=== PATIENT | female | born 1935 | race Caucasian/White ===

== ENCOUNTER → 2023-03-13 13:49 | Outpatient (REF) | payer MEDICARE, SELFPAY | LOC: DHCBS HW 13:49 | PROVIDERS: ATTENDING PHYSICIAN Internal Medicine Cardiovascular Disease; FAMILY PHYSICIAN Internal Medicine Geriatric Medicine | DX: I48.0 Paroxysmal atrial fibrillation (principal) | CPT/HCPCS: 93306 ==

== ENCOUNTER 2023-04-10 19:09 | Inpatient (IN) | payer MEDICARE, SELFPAY ==
[2023-04-10] VITALS (7 sets, daily range): BP systolic 102–158; BP diastolic 52–76; BMI 21.9
[2023-04-10 17:12] LABS: % Basophils 0.6 % (0-2); % Eosinophils 1.4 % (0-6); % Immature Granulocytes 0.4 % (0-0.5); % Lymphocytes 12.2 % (20.5-51.1); % Monocytes 6.1 % (1.7-9.3); % Neutrophils 79.3 % (42.2-75.2); Absolute Basophils 0.1 10^3/uL (0-0.2); Absolute Eosinophils 0.2 10^3/uL (0-0.7); Absolute Lymphocytes 1.3 10^3/uL (1.2-3.4); Absolute Monocytes 0.7 10^3/uL (0.1-0.6); Absolute Neutrophils 8.6 10^3/uL (1.4-6.5); Hematocrit 39.1 % (37.0-47.0); Mean Corp Hgb Conc. 33.2 g/dL (33.0-37.0); Mean Corpuscular Hgb 31.1 pg (27.0-31.0); Mean Corpuscular Volume 93.5 fL (81.0-99.0); Mean Platelet Volume 9.9 fL (7.4-10.4); Nucleated Red Blood Cells % 0 %; Platelet Count 324 10^3/uL (130-400); Red Blood Cell Count 4.18 10^6/uL (4.20-5.40); Red Cell Dist. Width 13.4 % (11.5-14.5); White Blood Cell Count 10.8 10^3/uL (4.8-10.8)
--- NOTE | 2023-04-10 17:30 | ED.GENMED ---
History of Present Illness
General
Chief Complaint: Abnormal Lab Value
Source: patient
Exam Limitations: none
Time Seen by Provider: 04/10/23 16:31
Travel History
Have you had any contact with someone who has COVID-19?: No
Do you have any symptoms of coronavirus? Fever > 100 degrees, chills, cough, shortness of breath, sore throat, loss of taste or smell, muscle aches, or headache?: No
History of Present Illness
History of Present Illness:
87-year-old female presents in referral from family doctor for evaluation of elevated potassium. Patient had routine blood work drawn today and states that she was called by her doctor told to come here for evaluation of elevated potassium. She
has hypertension and was started on spironolactone about 2 weeks ago. She states she feels dizzy. She states she is always dizzy since about 2 months ago. This is not new. No chest pain. No shortness of breath. No other complaints at this time
Past History
Past History
ED Past Medical History: HTN, Hypercholesterolemia, Hypothyroidism, Psychiatric and Other (History of corneal erosions, plantar fasciitis, cataracts, arthritis, pneumonia)
ED Past Surgical History: Cholecystectomy, Gynecological (Hysterectomy) and Other (Epidural and facet injections)
Social History
Tobacco: Non-smoker
Alcohol: None
Drug: None
Personal:
Living: with family
Employment: Retired
Family History
Family History: Hypertension
Phy Exam
Physical Exam
Physical Exam:
General: Well-appearing female no acute respiratory distress
HEENT: Normocephalic atraumatic
Heart: Regular rate and rhythm no murmurs
Lungs: Clear to auscultation bilaterally no wheezing
Extremities: No cyanosis or edema
Course
Orders/Labs/Results
Orders:
Orders
04/10/23 15:11
EKG [Electrocardiogram (*1)] Urgent
Reason for Study: Vertigo / Dizzy
04/10/23 15:12
EKG- Treatment ONCE
04/10/23 17:02
Complete Blood Count/With Diff Urgent
Comprehensive Metabolic Panel Urgent
04/10/23 17:37
Calcium Gluconate 1 gram/100mL [Calcium Gluconate] 1 gram in 100 ml IV ONCE
Dextrose 50%-Water [Dextrose 50% Syringe] 25 grams IV NOW STA
Insulin Human Regular [Novolin R] 5 units IV NOW STA
Sodium Zirconium Cyclosilicate [Lokelma] 10 gram PO NOW STA
Abnormal Lab Results
04/10/23
17:02
RBC 4.18 L 10^6/uL
(4.20-5.40)
MCH 31.1 H pg
(27.0-31.0)
Absolute Neuts (auto) 8.6 H 10^3/uL
(1.4-6.5)
Absolute Monos (auto) 0.7 H 10^3/uL
(0.1-0.6)
Neutrophils % 79.3 H %
(42.2-75.2)
Lymphocytes % 12.2 L %
(20.5-51.1)
Potassium 6.9 H* mmol/L
(3.5-5.1)
Chloride 110 H mmol/L
(98-107)
Carbon Dioxide 21 L mmol/L
(22-30)
BUN 76 H mg/dl
(7-17)
Creatinine 1.6 H mg/dL
(0.6-1.0)
Glucose 101 H mg/dl
(70-99)
04/10/23 17:02
04/10/23 17:02
Vital Signs
Initial and Last Documented VS:
Initial Vital Signs
Temp Pulse Resp BP Pulse Ox
98.3 F 76 16 124/57 98
04/10/23 15:08 04/10/23 15:08 04/10/23 15:08 04/10/23 15:08 04/10/23 15:08
Last Documented Vital Signs
Temp Pulse Resp BP Pulse Ox
98.3 F 76 16 124/57 98
04/10/23 15:08 04/10/23 15:08 04/10/23 15:08 04/10/23 15:08 04/10/23 15:08
MDM/Problems Addressed
Differential Diagnosis Includes:
Elevated potassium as an outpatient. Will recheck here today. Value earlier was 6.4. Question possible recent initiation of spironolactone as a source
*Critical Care Note
Total Time (30-74mins, 75-104mins- exclusive of procedures): Not Applicable
Update Note
Update Note:
Recheck potassium today is 6.9. EKG does show peaked T waves. Will initiate treatment for hyperkalemia and admit to hospital
ED Attending Note
-
Portions of this chart may have been created with voice recognition software.� Occasional wrong word or��sound alike� substitutions may have occurred due to the inherent limitations of voice recognition software.
Discharge Plan
Departure
Patient Disposition: Admit
Date of Disposition: 04/10/23
Time of Disposition: 17:46
Admit to: Telemetry
Presentation/result/management discussed w/ accepting MD/DO: Hospitalist
Discharge Problem:
Acute hyperkalemia
Prescriptions:
No Action
levothyroxine [Synthroid] 75 MCG tablet
75 mcg PO DAILY
gabapentin 300 MG capsule
300 mg PO TID
mx-zyc-ON-Ad-Sp-gnawlib-lutein 1 EACH tablet
1 tab PO DAILY
valsartan-hydrochlorothiazide [Diovan HCT] 1 EACH tablet
1 ea PO DAILY
Patient Comments:
320/25 mg
rivaroxaban [Xarelto] 20 MG tablet
20 mg PO QPM Qty: 30 11RF
Acetaminophen
1,000 mg PO BID
Glucosamine Chondroitin Caplet
1 tab PO DAILY
metoprolol tartrate 25 MG tablet
12.5 mg PO BID
valsartan-hydrochlorothiazide 1 EACH tablet
1 ea PO DAILY Qty: 30 0RF
metoprolol succinate 25 MG tablet extended release 24 hr
25 mg PO DAILY Qty: 30 0RF
lidocaine 5 % adhesive patch,medicated
1 patch topical DAILY Qty: 15 0RF
Rx Instructions:
remove after 12 hrs
alprazolam [Xanax] 0.25 mg tablet
0.25 mg PO HS PRN (Reason: anxiety) Qty: 10 0RF
Referrals:
Chip Tirado MD [Family Provider] -
Interventions
Interventions:
*Risk Screen - Suicide Last Done: 04/10/23 15:08
*General Assessment Last Done: 04/10/23 15:08
*Neglect/Abuse Screening Last Done: 04/10/23 15:08
[2023-04-10 17:33] LABS: ALT (SGPT) 15 U/L (0-35); AST (SGOT) 26 U/L (14-36); Albumin 4.2 g/dl (3.5-5.0); Alkaline Phosphatase 90 U/L (38-126); Blood Urea Nitrogen 76 mg/dl (7-17); Calcium 10.1 mg/dl (8.4-10.2); Carbon Dioxide 21 mmol/L (22-30); Chloride 110 mmol/L (98-107); Glucose 101 mg/dl (70-99); Potassium 6.9 mmol/L (3.5-5.1); Sodium 135 mmol/L (135-145); Total Bilirubin 1.1 mg/dl (0.2-1.3); Total Protein 7.3 g/dl (6.3-8.2); eGFR 31.02
[2023-04-10] MEDS: DEXTROSE 50% SYRINGE 25 GRAMS IV ×2 (17:55→22:34)
[2023-04-10] MEDS: LOKELMA 10 GRAM PO ×2 (17:59→23:16)
[2023-04-10] MEDS: CALCIUM GLUCONATE 100 IV (17:59)
[2023-04-10] MEDS: NOVOLIN R 5 UNITS IV (17:59)
--- NOTE | 2023-04-10 18:48 | HPS.HSE ---
Family Physician
-
Family Physician: Chip Tirado
Chief Complaint
-
hyperkalemia
History of Present Illness
87-year-old female with past medical history of vertigo, paroxysmal atrial fibrillation, hypertension, peripheral vascular disease, hypercholesterolemia, hypothyroidism, corneal abrasion, hemorrhoids, IBS, uterine prolapse presenting as referred by
her primary care physician for elevated potassium. Patient had routine blood work drawn today states she was called by doctor and told to come here for elevated potassium. She was started on spironolactone 2 weeks ago for hypertension. Since then
she has been having to urinate more frequently.
Patient states he has been having vertigo described as spinning since February. Vertigo occurs primarily while getting up or with ambulation. She occasionally has some headache. She is scheduled for MRI of the brain this weekend.
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 She denies any diarrhea today. She is complaining of abdominal pain but is unclear if this is due to need to urinate. She denies any urinary burning or pain.
Medical History
Past Medical History
Past Medical History: Reports Other (vertigo, paroxysmal atrial fibrillation, hypertension, peripheral vascular disease, hypercholesterolemia, hypothyroidism, corneal abrasion, hemorrhoids, IBS, uterine prolapse)
Past Surgical History: Reports Other ( Cholecystectomy, Gynecological (Hysterectomy) and Other (Epidural and facet injections))
Social History
Tobacco: Non-smoker
Alcohol: None
Drug: None
Family History
Family History: Not pertinent
Allergies / Home Medications
Allergies reflects when Allergies were last updated in [employer].
Home Medications with original date entered in [employer]
Allergy/Medication List:
Allergies
Allergy/AdvReac Type Severity Reaction Status Date / Time
amlodipine [From Norvasc] Allergy Unknown Verified 04/10/23 15:08
codeine [Codeine] Allergy Vomiting Verified 04/10/23 15:08
diltiazem Allergy Unknown Verified 02/29/24 15:08
lovastatin [From Advicor] Allergy Itching Verified 04/10/23 15:08
meloxicam [From Mobic] Allergy vertigo Verified 04/10/23 15:08
methocarbamol [From Robaxin] Allergy VERTIGO Verified 04/10/23 15:08
nabumetone [Nabumetone] Allergy Hives Verified 04/10/23 15:08
niacin [From Advicor] Allergy Itching Verified 04/10/23 15:08
trevor quinalones Allergy Unknown Uncoded 04/10/23 15:08
robixcon Allergy vertigo Uncoded 04/10/23 15:08
Home Medications
levothyroxine 75 mcg tablet (Synthroid) 75 mcg PO DAILY 04/13/13
olyhrqul-jsx-AW 0.4 mg-calcium 162 mg-iron 18 qx-tnmdtps-vipzfz tablet 1 tab PO DAILY 04/13/13
rivaroxaban 20 mg tablet (Xarelto) 20 mg PO QPM ##30 04/14/13
acetaminophen 500 mg tablet (Tylenol Extra Strength) 1,000 mg PO BID 09/26/16
cholecalciferol (vitamin D3) 25 mcg (1,000 unit) tablet (Vitamin D3) 25 mcg PO DAILY 04/10/23
hydralazine 50 mg tablet 50 mg PO QID 04/10/23
meclizine 25 mg tablet 25 mg PO BID 04/10/23
metoprolol succinate 25 mg tablet,extended release 24 hr 25 mg PO BID 04/10/23
spironolactone 50 mg tablet 50 mg PO BID 04/10/23
tetrahydrozoline 0.05 % eye drops 1 drp BOTH EYES HS 04/10/23
valsartan 320 mg-hydrochlorothiazide 25 mg tablet 1 tab PO DAILY 04/10/23
Review of Systems
-
History Source: Patient
A 12 point ROS was completed and negative except as noted: Yes
Constitutional: Reports No Symptoms
EENT: Reports No Symptoms
Respiratory: Reports No Symptoms
Cardiac: Reports No Symptoms
Abdomen/GI: Reports See HPI
: Reports No Symptoms
Musculoskeletal: Reports No Symptoms
Skin: Reports No Symptoms
Neurological: Reports No Symptoms
Endocrine: Reports No Symptoms
Hematologic/Lymphatic: Reports No Symptoms
Psych: Reports No Symptoms
Physical Exam
Vital Signs
Vital Signs
Temp Pulse Resp BP Pulse Ox
98.3 F 79 21 143/52 98
04/10/23 15:08 04/10/23 18:15 04/10/23 18:15 04/10/23 18:01 04/10/23 18:15
Physical Exam
General: Well Developed, Well Nourished and No Apparent Distress
HEENT: NormoCephalic, Moist mucous membranes and Atraumatic
Respiratory: Clear
Cardiac: S1/S2 and Regular Rhythm; No Murmur or Rub
GI: Soft, Non Tender, Non Distended and Normal Bowel Sounds; No Organomegaly
Rectal: Deferred by Provider
Musculoskeletal: No Clubbing, No Cyanosis and No Edema
Skin: No Rash
Neuro: Nonfocal/grossly intact
Laboratory Results
-
04/10/23 17:02
04/10/23 17:02
Laboratory Results
Total Bilirubin 1.1 mg/dl (0.2-1.3) 04/10/23 17:02
AST 26 U/L (14-36) 04/10/23 17:02
ALT 15 U/L (0-35) 04/10/23 17:02
Alkaline Phosphatase 90 U/L (38-126) 04/10/23 17:02
Data Reviewed
-
Lab Data: Labs Reviewed by me
Old Records: Reviewed
Impression/Plan
-
IMPRESSION:
PLAN:
# Severe hyperkalemia secondary to addition of spironolactone/chronic valsartan use
# Acute kidney injury
-EKG shows normal sinus rhythm, with peaked T waves
-Insulin dextrose given
-Calcium gluconate given
-Lokelma given
-IV fluids
-Hold spironolactone/valsartan/hydrochlorothiazide
-Recheck BMP in 2 hours
# Persistent vertigo unclear etiology
-Check orthostatic vitals
-Scheduled for outpatient MRI brain this week
-Continue meclizine
# Abdominal pain
# History of IBS
-Could be suprapubic pain
-Could be related to IBS
-Check urinalysis
Paroxysmal atrial fibrillation
-Continue Xarelto
Chronic dizziness
-Continue meclizine
Essential hypertension
-Continue hydralazine QID
-Continue metoprolol
-Might have to increase hydralazine to 5 times a day or increase dosage since stopping spironolactone
Peripheral vascular disease
Hypercholesterolemia
Hypothyroidism
-Continue levothyroxine
History of corneal abrasion
History of hemorrhoids
History of uterine prolapse
Full code
DVT prophylaxis�Xarelto
Low potassium diet
[2023-04-10] MEDS: NSS 1000 IV (20:51)
[2023-04-10] MEDS: TOPROL XL 25 MG PO (20:54)
[2023-04-10] MEDS: TYLENOL 1000 MG PO (20:55)
[2023-04-10] MEDS: ANTIVERT 25 MG PO (20:55)
[2023-04-10] MEDS: APRESOLINE 50 MG PO (21:03)
[2023-04-10] MEDS: VISINE EYE DROPS 1 DROP BOTH EYES (21:03)
[2023-04-10 21:34] LABS: Blood Urea Nitrogen 76 mg/dl (7-17); Calcium 10.4 mg/dl (8.4-10.2); Carbon Dioxide 24 mmol/L (22-30); Chloride 106 mmol/L (98-107); Estimated Creatinine Clearance 22 ml/min; Glucose 135 mg/dl (70-99); Potassium 5.9 mmol/L (3.5-5.1); Sodium 137 mmol/L (135-145); eGFR 33.52
[2023-04-10] MEDS: NOVOLIN R 0.0500000000000000028 UNITS IV (22:34)
[2023-04-10 23:18] LABS: Urine Albumin Negative (Neg - Trace); Urine Bilirubin Negative (Negative); Urine Character Clear (Clear); Urine Color Yellow; Urine Glucose 1+ (Negative); Urine Ketone Negative (Negative); Urine Leukocyte 2+ (Negative); Urine Nitrite Negative (Negative); Urine Occult Blood Negative (Negative); Urine Specific Gravity 1.025 (<1.030); Urine Urobilinogen Negative (Neg - 1+)
[2023-04-10 23:32] LABS: Urine Squamous Cell >30 /LPF (Few)
[2023-04-10 23:33] LABS: Urine Bacteria Moderate (Negative); Urine White Cell 16-20 /HPF (0-5)
[2023-04-11] VITALS (9 sets, daily range): BP systolic 130–175; BP diastolic 55–75; PULSE 77–82; O2SAT 98–99; BMI 21.9
[2023-04-11] MEDS: NON-FORMULARY ITEM 0.0160000000000000003 GRAMS BOTH EYES ×2 (00:50→22:55)
[2023-04-11] MEDS: MELATONIN 5 MG PO ×2 (01:11→23:37)
[2023-04-11] MEDS: SYNTHROID 75 MCG PO (06:11)
[2023-04-11 06:56] LABS: % Basophils 0.6 % (0-2); % Eosinophils 2.6 % (0-6); % Immature Granulocytes 0.3 % (0-0.5); % Lymphocytes 18.1 % (20.5-51.1); % Monocytes 7.8 % (1.7-9.3); % Neutrophils 70.6 % (42.2-75.2); Absolute Basophils 0.1 10^3/uL (0-0.2); Absolute Eosinophils 0.2 10^3/uL (0-0.7); Absolute Lymphocytes 1.6 10^3/uL (1.2-3.4); Absolute Monocytes 0.7 10^3/uL (0.1-0.6); Absolute Neutrophils 6.1 10^3/uL (1.4-6.5); Hematocrit 32.6 % (37.0-47.0); Mean Corp Hgb Conc. 33.7 g/dL (33.0-37.0); Mean Corpuscular Hgb 31.3 pg (27.0-31.0); Mean Corpuscular Volume 92.6 fL (81.0-99.0); Mean Platelet Volume 9.7 fL (7.4-10.4); Nucleated Red Blood Cells % 0 %; Platelet Count 259 10^3/uL (130-400); Red Blood Cell Count 3.52 10^6/uL (4.20-5.40); Red Cell Dist. Width 13.2 % (11.5-14.5); White Blood Cell Count 8.7 10^3/uL (4.8-10.8)
[2023-04-11 07:28] LABS: AST (SGOT) 22 U/L (14-36); Albumin 3.1 g/dl (3.5-5.0); Blood Urea Nitrogen 55 mg/dl (7-17); Carbon Dioxide 17 mmol/L (22-30); Estimated Creatinine Clearance 25 ml/min; Glucose 89 mg/dl (70-99); Total Bilirubin 1.3 mg/dl (0.2-1.3); Total Protein 5.6 g/dl (6.3-8.2)
[2023-04-11 07:38] LABS: ALT (SGPT) 12 U/L (0-35); Alkaline Phosphatase 67 U/L (38-126); Calcium 9.6 mg/dl (8.4-10.2); Chloride 110 mmol/L (98-107); Potassium 5.8 mmol/L (3.5-5.1); Sodium 135 mmol/L (135-145)
[2023-04-11] MEDS: NSS 1000 IV (07:55)
[2023-04-11] MEDS: TOPROL XL 25 MG PO ×2 (07:56→19:58)
[2023-04-11] MEDS: APRESOLINE 50 MG PO ×4 (07:56→22:55)
[2023-04-11] MEDS: VITAMIN D3 (cholecalciferol) 25 MCG PO (07:56)
[2023-04-11] MEDS: THERAGRAN 1 TABLET PO (07:56)
[2023-04-11] MEDS: ANTIVERT 25 MG PO ×2 (07:56→19:58)
[2023-04-11] MEDS: TYLENOL 1000 MG PO ×2 (07:57→19:58)
[2023-04-11] MEDS: LOKELMA 10 GRAM PO (09:07)
[2023-04-11] MEDS: SODIUM BICARBONATE 1150 MEQ IV (09:07)
--- NOTE | 2023-04-11 13:45 | W.PN.HOSP.TC ---
Today's Communication/Plan
-
see outlined plan
Assessment / Plan
Assessment / Plan
Assessment:
Severe hyperkalemia secondary to addition of spironolactone/chronic valsartan use
Acute kidney injury
- Hold spironolactone/valsartan/hydrochlorothiazide
- EKG shows normal sinus rhythm, with peaked T waves
- s/p Jorden gluconate, insulin/dextrose and Lokelma; repeat EKG without peaked T waves
- s/p Lokelma again this AM; repeat BMP at 4pm
- low K diet
- continue bicarbonate IVF for NSS induced acidosis
- Hold spironolactone/valsartan/hydrochlorothiazide
Chronic persistent vertigo unclear etiology
Chronic dizziness
- continue home meclizine prn
- outpatient Brain MRI scheduled next week
- PT/OT
Hx of IBS
UTI - start Rocephin, day 1 pending culture
Paroxysmal atrial fibrillation
- continue Xarelto; dosing adjusted by pharmacy
Essential hypertension, multi-drug resistant
- continue hydralazine QID
- continue metoprolol
- Hold spironolactone/valsartan/hydrochlorothiazide
- may need to consider CCB if becomes elevated
- check Renal Artery US
- check pheo workup
Peripheral vascular disease
Hypercholesterolemia
Hypothyroidism
- continue levothyroxine
History of corneal abrasion
History of hemorrhoids
History of uterine prolapse
DVT ppx: Xarelto
Code: Full
Anticipated Discharge: > 48 hours
Subjective/Interval History
-
Date of Service: April 11, 2023
no new complaints
reports chronically experiencing Vertigo which she now takes Meclizine recently started, state it helps
Objective Data
-
Labs:
Laboratory Results
04/11/23 04/11/23
06:28 16:00
WBC 8.7
Hgb 11.0 L
Hct 32.6 L
Plt Count 259 D
Sodium 135 Pending
Potassium 5.8 H Pending
Chloride 110 H Pending
Carbon Dioxide 17 L Pending
BUN 55 H Pending
Creatinine 1.3 H Pending
Glucose 89 Pending
Calcium 9.6 Pending
Total Bilirubin 1.3
AST 22
ALT 12
Alkaline Phosphatase 67
Vital Signs:
Vital Signs
Temp Pulse Resp BP Pulse Ox
97.9 F 75 16 130/57 99
04/11/23 11:00 04/11/23 11:00 04/11/23 11:00 04/11/23 11:00 04/11/23 11:00
I&O
04/10/23 04/11/23 04/12/23
06:59 06:59 06:59
Intake Total 240 / 240
Balance 240 / 240
Physical Exam
-
General: No Apparent Distress
HEENT: Normocephalic and Atraumatic
Respiratory: Negative Wheezes or Rales
Cardiac: Regular Rhythm and S1/S2
GI: Soft and Nontender
Neuro: AO x 3
Hematologic / Lymphatic: No Lymphadenopathy
Psych: Calm
Data Reviewed
-
Total Time Spent with Patient (in minutes): 42
Labs: Labs Reviewed by me
--- NOTE | 2023-04-11 13:48 | CM ---
Reviewed chart, met with patient to obtain information for assessment. Patient stated that she lives alone in an apartment that is [address] and [address] with no steps. Patient described herself as independent with her ADLs, personal care, dressing, bathing
and toileting. She has a walker and a cane that she uses to assist her with her ambulation.
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 She did admit to some chores being difficult and as that is the case, she was provided with a list of homemaker and companions. She stated that she has a
lot of wonderful neighbors who assist her with what she needs and supportive children.
Patient does not drive but her friend can take her to her appointments and assists with the shopping.
Patent has had VN through in the past.
She has never been to a SNF.
Patient has a prescription plan and uses [facility] in [place] for all of her medications.
Her PCP is Dr. Dimitry Tirado.
Patient stated that physically she feels that she is at baseline, maybe a little weaker due to the vertigo. She stated that she would like [facility]N when she is discharged and selected [facility]. Will make referral.
Plan: Case management will continue to follow and assist with discharge planning. Patient would like to return home with VN services.
[2023-04-11] MEDS: STERILE WATER FOR INJECTION 10 ML IV (14:27)
[2023-04-11] MEDS: ROCEPHIN 1000 MG IV (14:27)
--- NOTE | 2023-04-11 15:58 | CM ---
Consult received for [facility]N (patient selects ). Updated liason.
Plan: Case management will continue to follow and assist with discharge planning. Home with VN through .
--- NOTE | 2023-04-11 15:59 | VNURNOTE ---
Home Health Liaison met with patient at 1520 to discuss [facility] nurse/therapy, visits, schedule and homebound status. Patient is agreeable and understands that visits at home will be 2-3 x per week to assess and teach medical management.
[facility] brochure provided with contact information. Patient is aware that [facility] will contact her for start of care in 1-2 days after discharge from .
[facility] referral completed in [facility].
[2023-04-11 16:30] LABS: Blood Urea Nitrogen 51 mg/dl (7-17); Calcium 9.6 mg/dl (8.4-10.2); Carbon Dioxide 24 mmol/L (22-30); Chloride 105 mmol/L (98-107); Estimated Creatinine Clearance 30 ml/min; Glucose 124 mg/dl (70-99); Potassium 4.9 mmol/L (3.5-5.1); Sodium 137 mmol/L (135-145); eGFR 48.63
[2023-04-11] MEDS: XARELTO 15 MG PO (17:58)
[2023-04-11] MEDS: VISINE EYE DROPS 1 DROP BOTH EYES (22:55)
[2023-04-12 03:34] VITALS: BP 131/55
[2023-04-12] MEDS: SYNTHROID 75 MCG PO (06:09)
[2023-04-12 07:36] LABS: Hematocrit 36.3 % (37.0-47.0); Hemoglobin 12.2 g/dL (12.0-16.0); Mean Corp Hgb Conc. 33.6 g/dL (33.0-37.0); Mean Corpuscular Hgb 31.4 pg (27.0-31.0); Mean Corpuscular Volume 93.6 fL (81.0-99.0); Mean Platelet Volume 9.9 fL (7.4-10.4); Platelet Count 260 10^3/uL (130-400); Red Blood Cell Count 3.88 10^6/uL (4.20-5.40); Red Cell Dist. Width 13.2 % (11.5-14.5); White Blood Cell Count 10.4 10^3/uL (4.8-10.8)
[2023-04-12 07:51] VITALS: BP 136/61
[2023-04-12 08:02] LABS: Blood Urea Nitrogen 45 mg/dl (7-17); Calcium 9.5 mg/dl (8.4-10.2); Carbon Dioxide 30 mmol/L (22-30); Chloride 101 mmol/L (98-107); Estimated Creatinine Clearance 33 ml/min; Glucose 102 mg/dl (70-99); Potassium 4.4 mmol/L (3.5-5.1); Sodium 137 mmol/L (135-145); eGFR 54.53
[2023-04-12] MEDS: ANTIVERT 25 MG PO (09:07)
[2023-04-12] MEDS: TYLENOL 1000 MG PO (09:07)
[2023-04-12] MEDS: THERAGRAN 1 TABLET PO (09:07)
[2023-04-12] MEDS: VITAMIN D3 (cholecalciferol) 25 MCG PO (09:07)
[2023-04-12] MEDS: APRESOLINE 50 MG PO ×2 (09:07→12:49)
[2023-04-12] MEDS: TOPROL XL 25 MG PO (09:07)
--- NOTE | 2023-04-12 11:15 | W.PN.HOSP.TC ---
Today's Communication/Plan
-
dc home VN
Assessment / Plan
Assessment / Plan
Assessment:
Severe hyperkalemia secondary to addition of spironolactone/chronic valsartan use
Acute kidney injury
- stop spironolactone/valsartan
- EKG shows normal sinus rhythm, with peaked T waves
- s/p Jorden gluconate, insulin/dextrose and Lokelma; repeat EKG without peaked T waves
- hyperkalemia now resolved
- low K diet
Chronic persistent vertigo unclear etiology
Chronic dizziness
- continue home meclizine prn
- outpatient Brain MRI scheduled next week
- PT/OT with vestibular therapy
Hx of IBS
UTI
- s/p 2 dose of Rocephin, dc on 3 days cefdinir at discharge
Paroxysmal atrial fibrillation
- continue Xarelto; dosing adjusted by pharmacy
Essential hypertension, multi-drug resistant
- continue hydralazine QID
- continue metoprolol
- stop spironolactone/valsartan
- hydrochlorothiazide 25mg to resume
- may need to consider CCB if becomes elevated; OP F/u
- Renal Artery US outpatient
- pheo workup was sent
Peripheral vascular disease
Hypercholesterolemia
Hypothyroidism
- continue levothyroxine
History of corneal abrasion
History of hemorrhoids
History of uterine prolapse
DVT ppx: Xarelto
Code: Full
More than 30 minutes spent in discharge including
Final examination of the patient
Summarizing hospital stay
Instructions for continuing care to all relevant caregivers
Preparation of discharge records, prescriptions, and referral forms
Total time spent (in minutes): 41
Anticipated Discharge: Today
Subjective/Interval History
-
Date of Service: April 12, 2023
feels well, no complaints, BPs stable for the most part, asymptomatic
Objective Data
-
Labs:
Laboratory Results
04/12/23
07:23
WBC 10.4
Hgb 12.2
Hct 36.3 L
Plt Count 260
Sodium 137
Potassium 4.4
Chloride 101
Carbon Dioxide 30
BUN 45 H
Creatinine 1.0
Glucose 102 H
Calcium 9.5
Vital Signs:
Vital Signs
Temp Pulse Resp BP Pulse Ox
97.6 F 71 17 136/61 95
04/12/23 07:51 04/12/23 07:51 04/12/23 07:51 04/12/23 07:51 04/12/23 07:51
I&O
04/11/23 04/12/23 04/13/23
06:59 06:59 06:59
Intake Total 240 / 240 1480 / 1480
Output Total 300 / 300
Balance 240 / 240 1180 / 1180
Physical Exam
-
General: No Apparent Distress
HEENT: Normocephalic and Atraumatic
Respiratory: Negative Wheezes or Rales
Cardiac: Regular Rhythm and S1/S2
GI: Soft and Nontender
Genito-urinary: No Costovertebral Tender
Musculoskeletal: No Edema
Neuro: AO x 3
Psych: Calm
Data Reviewed
-
Total Time Spent with Patient (in minutes): 41
Labs: Labs Reviewed by me
--- NOTE | 2023-04-12 11:24 | W.DS.TRANS ---
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
-
Discharge Instructions:
Sleep Apnea Risk Low
Discharge Diagnosis/Procedures hyperkalemia induced by BP Meds (Valsartan and
Spironolactone)
Diet 2 Gram Sodium
Additional Diets now that potassium has normalized, can stop
limiting K rich foods
Activity As tolerated
Bathing Restrictions None
Other Services VN
Instructions:
Stand-Alone Forms:
Changes to Home Medications: Yes
Discharge Medications:
DC Medications w/original date entered in [facility]
levothyroxine 75 mcg tablet (Synthroid) 75 mcg PO DAILY AT 0700 Thyroid 04/13/13
jkgsyiuc-mbw-VK 0.4 mg-calcium 162 mg-iron 18 lp-pmwlqtu-bkpbrs tablet 1 tab PO DAILY Supplement 04/13/13
acetaminophen 500 mg tablet (Tylenol Extra Strength) 1,000 mg PO BID pain 09/26/16
cholecalciferol (vitamin D3) 25 mcg (1,000 unit) tablet (Vitamin D3) 25 mcg PO DAILY Supplement 04/10/23
hydralazine 50 mg tablet 50 mg PO QID Blood Pressure 04/10/23
meclizine 25 mg tablet 25 mg PO BID vertigo/dizziness 04/10/23
metoprolol succinate 25 mg tablet,extended release 24 hr 25 mg PO BID Blood Pressure 04/10/23
tetrahydrozoline 0.05 % eye drops 1 drp BOTH EYES HS Eye Condition 04/10/23
ztvrgjk-jxmhkr-xbnrvd oil 0.12 mg-87 mg-788 mg/g topical gel 0.016 g topical HS Skin Issues 04/10/23
cefdinir 300 mg capsule 300 mg PO BID #6 caps 04/12/23
hydrochlorothiazide 25 mg tablet 25 mg PO DAILY #30 tabs 04/12/23
rivaroxaban 15 mg tablet (Xarelto) 15 mg PO QPM #30 tabs 04/12/23
Home Medication Changes
Spironolactone, Valsartan stopped but HCTZ kept
Pending Results: No
Total time spent discharging patient (in min): 41
--- NOTE | 2023-04-12 12:14 | CM ---
Chart reviewed. Spoke with pt at beside
For d/c today
Has ride home
Discussed IMM
Plan - home with VN
[2023-04-12] MEDS: ROCEPHIN 1000 MG IV (12:49)
[2023-04-12] MEDS: STERILE WATER FOR INJECTION 10 ML IV (12:50)
== END 2023-04-12 14:40 | disposition home health service (06) | DRG 683 ==
LOC: 3 WEST ACU 19:09
PROVIDERS: Physician Assistant; ADMITTING PHYSICIAN Hospitalist; ATTENDING PHYSICIAN Internal Medicine; EMERGENCY PHYSICIAN Student in an Organized Health Care Education/Training Program; FAMILY PHYSICIAN Internal Medicine Geriatric Medicine
DX: N17.9 Acute kidney failure, unspecified (principal); N39.0 Urinary tract infection, site not specified; Z16.24 Resistance to multiple antibiotics; E87.5 Hyperkalemia; I10 Essential (primary) hypertension; E03.9 Hypothyroidism, unspecified; E78.00 Pure hypercholesterolemia, unspecified; H26.9 Unspecified cataract; M19.90 Unspecified osteoarthritis, unspecified site; M72.2 Plantar fascial fibromatosis; K58.9 Irritable bowel syndrome, unspecified; I48.0 Paroxysmal atrial fibrillation; R42 Dizziness and giddiness; I73.9 Peripheral vascular disease, unspecified; K64.9 Unspecified hemorrhoids; T46.5X5A Adverse effect of other antihypertensive drugs, initial encounter; T50.0X5A Adverse effect of mineralocorticoids and their antagonists, initial encounter; Y92.9 Unspecified place or not applicable; Z87.01 Personal history of pneumonia (recurrent); Z79.890 Hormone replacement therapy; Z88.5 Allergy status to narcotic agent; Z88.8 Allergy status to other drugs, medicaments and biological substances; Z79.01 Long term (current) use of anticoagulants
CPT/HCPCS: 36415; 80048; 80053; 80061; 81003; 81015; 82088; 82384; 83835; 84100; 84244; 85025; 85027; 87077; 87086; 93005; 96374; 96375; 97162; 97166; 99285

== ENCOUNTER → 2023-05-02 19:36 | Outpatient (REF) | payer MEDICARE, SELFPAY | LOC: MRI 3T 19:36 | PROVIDERS: ATTENDING PHYSICIAN Physician Assistant Surgical; FAMILY PHYSICIAN Internal Medicine Geriatric Medicine | DX: M25.512 Pain in left shoulder (principal) | CPT/HCPCS: 73221 ==

== ENCOUNTER 2023-06-10 06:15 | Day surgery (SDC) | payer MEDICARE, SELFPAY ==
[2023-06-10] VITALS (12 sets, daily range): BP systolic 117–162; BP diastolic 7–73; BMI 23.3
[2023-06-10] MEDS: NORMOSOL-R 1000 IV (07:49)
[2023-06-10] MEDS: TYLENOL 1000 MG PO (07:49)
--- NOTE | 2023-06-10 11:28 | SUR.PHASEI ---
02 sats borderline, pulmonary hygiene q5. E Agus mendoza RN BSN.
== END 2023-06-10 13:15 | disposition home or self-care (01) ==
LOC: SDS 06:15
PROVIDERS: ATTENDING PHYSICIAN Specialist
DX: M75.102 Unspecified rotator cuff tear or rupture of left shoulder, not specified as traumatic (principal); M19.012 Primary osteoarthritis, left shoulder; M75.42 Impingement syndrome of left shoulder
CPT/HCPCS: 29827; 29826; C1713

== ENCOUNTER → 2023-06-20 10:19 | Outpatient (REF) | payer MEDICARE, SELFPAY | LOC: RAD 10:19 | PROVIDERS: ATTENDING PHYSICIAN Internal Medicine Geriatric Medicine | DX: R60.0 Localized edema (principal) | CPT/HCPCS: 93970 ==

== ENCOUNTER 2023-07-10 23:07 | Emergency (ER) | payer MEDICARE, SELFPAY ==
[2023-07-10 23:25] VITALS: BP 192/80
--- NOTE | 2023-07-11 00:17 | ED.GENMED ---
History of Present Illness
<JADON Bradley - Last Filed: 07/11/23 05:22>
General
Chief Complaint: Bowel Problem
Source: patient
Exam Limitations: none
Time Seen by Provider: 07/10/23 23:53
Travel History
Have you had any contact with someone who has COVID-19?: No
Do you have any symptoms of coronavirus? Fever > 100 degrees, chills, cough, shortness of breath, sore throat, loss of taste or smell, muscle aches, or headache?: No
History of Present Illness
History of Present Illness:
87 year old female with hx of afib, HTN, hypothyroidism, s/p L rotator cuff repeair 06/10/23 who presents with severe lower abdominal pain that began just prior to arrival. Pt had recent shoulder surgery. She had a sling on the L arm. She took it
off 3 days ago and had severe shoulder pain. She took a dose of Tramadol that day. Prior to that, last dose of Tramadol was 30 days ago. Last BM was 4 days ago. Today she developed 10/10 sharp lower abdominal pain. Pain comes and goes; has not taken
anything for the pain. States it feels like she has to defecate but cannot. She has associated nausea and abdominal bloating. She has not passed any gas. Denies vomiting or fevers/chills. States she took Miralax yesterday and 2 doses today. She also
took stool softeners x3 today. She took dulcolax liquid as well. This evening she took a suppository and 30 minutes later developed the abdominal pain. States she has been drinking a lot of water and prune juice. Pt has a hx of fecal impaction and
states her pain today feels similar. States she felt her stool with her hand and states it was 'rock hard'. Denies any urinary symptoms, chest pain, SOB. Pt is on Xarelto, last dose was last night.
Past History
<JADON Bradley - Last Filed: 07/11/23 05:22>
Past History
ED Past Medical History: HTN, Hypercholesterolemia, Hypothyroidism, Psychiatric and Other (History of corneal erosions, plantar fasciitis, cataracts, arthritis, pneumonia)
ED Past Surgical History: Cholecystectomy, Gynecological (Hysterectomy) and Other (Epidural and facet injections)
Social History
Tobacco: Non-smoker
Alcohol: None
Drug: None
Personal:
Living: with family
Employment: Retired
Family History
Family History: Hypertension
Review of Systems
<Yolanda Bullard [facility] - Last Filed: 07/11/23 05:22>
Review of Systems
Allergies reviewed?: Yes
All Other Systems: ROS reviewed and negative except as documented in HPI and ROS
Constitutional: Reports no symptoms
EENT: Reports no symptoms
Respiratory: Reports no symptoms
Cardiac: Reports no symptoms
ABD/GI: Reports abdominal pain, nausea, constipated and other (abdominal bloating)
: Reports no symptoms
Musculoskeletal: Reports joint pain (L shoulder pain)
Skin: Reports no symptoms
Neurological: Reports no symptoms
Endocrine: Reports no symptoms
Hematologic/Lymphatic: Reports no symptoms
Psychiatric: Reports no symptoms
Phy Exam
<Yolanda Bullard [facility] - Last Filed: 07/11/23 05:22>
General Physical Exam
General Presentation: moderate distress
General age: appears stated age
General Skin: warm and dry
General Habitus: normal
General Mental: alert
General Hydration: dry mucous membranes
Cardiovascular Exam
Cardiovascular Exam: regular rate/rhythm, no edema, no gallop and no murmur
Pulmonary Exam
Pulmonary Exam: lungs clear, no respiratory distress, no rales, no crackles, no rhonchi, no wheezing and no cough
Gastrointestinal Exam
Gastrointestinal Exam: no pulsatile mass, distended and guarding
Palpation: left lower quadrant: Minimal tenderness and right lower quadrant: Minimal tenderness
Neurological Exam
Neurological Exam: alert and oriented x3
Musculoskeletal Exam
Musculoskeletal Exam: other (sling to L arm)
Skin Exam
Skin Exam: normal color and warm/dry
Course
<JADON Bradley - Last Filed: 07/11/23 05:22>
Orders/Labs/Results
Orders:
Orders
07/11/23 00:38
CR Abdomen - 1 View Urgent
Comment:
Reason For Exam: abd pain
07/11/23 01:56
Enema- Treatment ONCE
Type: Milk of Molasses
07/11/23 04:10
Complete Blood Count/With Diff Urgent
Comprehensive Metabolic Panel Urgent
Lipase Urgent
07/11/23 04:14
Phosphate Enema [Fleet Phosphate Enema-Adult] 135 ml .ROUTE .STK-MED ONE
07/11/23 06:30
Magnesium Citrate [Citroma] 300 ml PO ONCE ONE
Abnormal Lab Results
07/11/23
04:10
WBC 18.3 H 10^3/uL
(4.8-10.8)
Plt Count 402 H 10^3/uL
(130-400)
Abs Immat Gran (auto) 0.1 H 10^3/uL
(0-0.05)
Absolute Neuts (auto) 16.2 H 10^3/uL
(1.4-6.5)
Absolute Lymphs (auto) 1.0 L 10^3/uL
(1.2-3.4)
Absolute Monos (auto) 0.9 H 10^3/uL
(0.1-0.6)
Immature Gran % 0.7 H %
(0-0.5)
Neutrophils % 88.5 H %
(42.2-75.2)
Lymphocytes % 5.5 L %
(20.5-51.1)
Chloride 94 L mmol/L
(98-107)
Carbon Dioxide 33 H mmol/L
(22-30)
BUN 27 H mg/dl
(7-17)
Glucose 135 H mg/dl
(70-99)
Calcium 10.6 H mg/dl
(8.4-10.2)
07/11/23 04:10
07/11/23 04:10
Vital Signs
Initial and Last Documented VS:
Initial Vital Signs
Temp Pulse Resp BP Pulse Ox
98.9 F 78 18 192/80 97
07/10/23 23:25 07/10/23 23:25 07/10/23 23:25 07/10/23 23:25 07/10/23 23:25
Last Documented Vital Signs
Temp Pulse Resp BP Pulse Ox
98.9 F 78 18 192/80 97
07/10/23 23:25 07/10/23 23:25 07/10/23 23:25 07/10/23 23:25 07/10/23 23:25
<Jayce Riley, DO - Last Filed: 07/11/23 06:38>
Orders/Labs/Results
Orders:
Orders
07/11/23 00:38
CR Abdomen - 1 View Urgent
Comment:
Reason For Exam: abd pain
07/11/23 01:56
Enema- Treatment ONCE
Type: Milk of Molasses
07/11/23 04:10
Complete Blood Count/With Diff Urgent
Comprehensive Metabolic Panel Urgent
Lipase Urgent
07/11/23 04:14
Phosphate Enema [Fleet Phosphate Enema-Adult] 135 ml .ROUTE .STK-MED ONE
07/11/23 06:30
Magnesium Citrate [Citroma] 300 ml PO ONCE ONE
Abnormal Lab Results
07/11/23
04:10
WBC 18.3 H 10^3/uL
(4.8-10.8)
Plt Count 402 H 10^3/uL
(130-400)
Abs Immat Gran (auto) 0.1 H 10^3/uL
(0-0.05)
Absolute Neuts (auto) 16.2 H 10^3/uL
(1.4-6.5)
Absolute Lymphs (auto) 1.0 L 10^3/uL
(1.2-3.4)
Absolute Monos (auto) 0.9 H 10^3/uL
(0.1-0.6)
Immature Gran % 0.7 H %
(0-0.5)
Neutrophils % 88.5 H %
(42.2-75.2)
Lymphocytes % 5.5 L %
(20.5-51.1)
Chloride 94 L mmol/L
(98-107)
Carbon Dioxide 33 H mmol/L
(22-30)
BUN 27 H mg/dl
(7-17)
Glucose 135 H mg/dl
(70-99)
Calcium 10.6 H mg/dl
(8.4-10.2)
07/11/23 04:10
07/11/23 04:10
Vital Signs
Initial and Last Documented VS:
Initial Vital Signs
Temp Pulse Resp BP Pulse Ox
98.9 F 78 18 192/80 97
07/10/23 23:25 07/10/23 23:25 07/10/23 23:25 07/10/23 23:25 07/10/23 23:25
Last Documented Vital Signs
Temp Pulse Resp BP Pulse Ox
98.9 F 78 18 192/80 97
07/10/23 23:25 07/10/23 23:25 07/10/23 23:25 07/10/23 23:25 07/10/23 23:25
<JADON Bradley - Last Filed: 07/11/23 05:22>
MDM/Problems Addressed
Differential Diagnosis Includes:
constipation, SBO, colitis
MDM/Problems Addressed:
87 year old female who presents with severe abdominal pain and constipation.
Chronic conditions affecting care: Arrhythmia (afib) and Other (HLD, hypothyroidism)
<JADON Bradley - Last Filed: 07/11/23 05:22>
*Critical Care Note
Total Time (30-74mins, 75-104mins- exclusive of procedures): Not Applicable
<JADON Bradley - Last Filed: 07/11/23 05:22>
Update Note
Update Note:
07/11/2023 0448 AM: Patient has an enema and is holding it in.
07/11/2023 0520 AM: Patient sitting on comode. States abdominal pain has improved, but has not had much output.
<Jayce Riley DO - Last Filed: 07/11/23 06:38>
Update Note
Update Note:
07/11/2023 0448 AM: Patient has an enema and is holding it in.
ED Attending Note
<JADON Bradley - Last Filed: 07/11/23 05:22>
-
Portions of this chart may have been created with voice recognition software.� Occasional wrong word or��sound alike� substitutions may have occurred due to the inherent limitations of voice recognition software.
<Jayce Riley DO - Last Filed: 07/11/23 06:38>
ED Attending Note
Patient seen and examined by attending physician: Yes
I performed the substantive portion of visit, reviewed & personally made and approve the management plan that is documented in note by myself or TRENT.: Yes
ED Attending Note:
Pleasant 87-year-old female who presents with abdominal pain that began just prior to arrival. Patient had recent shoulder surgery and has been on tramadol. She states that she has not had a bowel movement in 4 to 5 days. Tonight she developed
sharp lower abdominal pain. She rated at 10 out of 10. She did start to take MiraLAX, docusate, 36 ounces of prune juice, water, and a glycerin suppository. Patient was seen in conjunction with the PA student. I have reviewed and agree with the
history and treatment plan presented. On my independent physical exam, patient is awake, alert, and oriented x3, moderate acute distress. Abdomen is soft with tenderness to palpation especially in the lower abdomen. Heart is regular rate rhythm.
Lungs are clear to auscultation bilaterally without wheezes rales or rhonchi. Moves all 4 extremities.
Abdominal chest x-ray shows heavy stool burden.
Plan is enema.
Patient had several bowel movements after enema. Resting comfortably. She states that she has no more abdominal pain. She does not feel completely empty but the pain is no longer present
07/11/2023 0631 AM: Patient's son is at the bedside. I had offered patient a disimpaction. She could not decide if she wanted one or not. We discussed the pros and cons of disimpaction. As an alternative I offered her magnesium citrate. I have
every expectation that the magnesium citrate will work since she has had bowel movements several times throughout the night after the enema. She asked me if I could guarantee that she would not return to constipation. I told her I could not. She
again was unsure of the magnesium citrate. I again offered her at least a digital rectal exam. She has multiple hernias and was concerned that it would hurt her hernias. She declined the digital rectal exam. Since she is now moving her bowels
she will take Colace. I will give her a bottle of magnesium citrate and she will take half the bottle. If she does not have a bowel movement after 6 hours she will take the other half bottle. If she still has trouble moving her bowels, she will
return to the emergency department. Both patient and son are okay with this plan. Patient wants no further intervention in the ER at this time.
Patient being discharged in much improved condition.
Discharge Plan
Departure
Patient Disposition: Home (Routine Discharge)
Date of Disposition: 07/11/23
Time of Disposition: 06:35
Patient with high blood pressure during this ER visit?: Yes
Condition: Good
Discharge Problem:
Acute constipation, Abdominal pain
Instructions: Clear Liquid Diet, Constipation, Adult (DC), Abdominal Pain, BLOOD PRESSURE
Prescriptions:
No Action
levothyroxine [Synthroid] 75 MCG tablet
75 mcg PO DAILY AT 0700
acetaminophen [Tylenol Extra Strength] 500 mg Tablet
1,000 mg PO BID
hydralazine 50 mg Tablet
100 mg PO TID
cholecalciferol (vitamin D3) [Vitamin D3] 25 mcg (1,000 unit) Tablet
25 mcg PO DAILY
metoprolol succinate 25 MG tablet extended release 24 hr
25 mg PO BID
hydrochlorothiazide 50 mg Tablet
50 mg PO DAILY
Systane Ultra (PF) 0.4-0.3 % Dropperette
1 drp BOTH EYES TID
Centrum 0.4-162-18 mg Tablet
1 tab PO DAILY
Optase 0.12-87-788 mg/g Gel
1 g topical HS
Rx Instructions:
both eyes
Xarelto 20 mg tablet
20 mg PO QPM
loperamide [Imodium] 2 mg Capsule
2 mg PO PRN PRN (Reason: Diarrhea)
Referrals:
Chip Tirado MD [Family Provider] -
Activity Restrictions/Additional Instructions:
Please take half the bottle of the magnesium citrate when you get home. Wait 6 hours. If you have not had a bowel movement at the end of that time, take the other half bottle. If you still have not had a bowel movement, return to the emergency
department, as discussed.
It was a pleasure meeting you and taking part in your care. We hope for your continued healing and wellness.
Please read discharge instructions in their entirety. However, they are for general education and may not describe your exact diagnosis at discharge. Information on your ER visit and medical conditions were discussed with you along with appropriate
follow up information...
If indicated, please take your medications as instructed and indicated on discharge paperwork.
Please schedule a follow up appointment as directed. Call to schedule an appointment
Please return to the emergency department with ANY change in, persisting, or worsening of symptoms. If any of your symptoms do not improve, or persist, or become more severe within 6-12 hours, please return to the emergency department for further
care.
Please return to the emergency department if you develop a headache, neck pain/stiffness, fever greater than 100.4F, chest pain, shortness of breath, persistent nausea, vomiting, slurred speech, difficulty walking, numbness/tingling, weakness, signs
of infection or any other symptoms that are worrisome to you.
If you have any questions or concerns please do not hesitate to call the Hospital at or E-mail me directly at [email or web address]
Interventions
Interventions:
*Risk Screen - Suicide Last Done: 07/11/23 03:28
*General Assessment Last Done: 07/11/23 03:28
*Neglect/Abuse Screening Last Done: 07/11/23 03:28
*ED COVID-19 Vaccine History Last Done: 07/11/23 03:28
ZQ-Vbykoh-Lgqyaokbdn Assessment Last Done: 07/11/23 03:28
Discharge Date and Time
Print Language: CHINESE
[2023-07-11 04:19] LABS: % Basophils 0.3 % (0-2); % Eosinophils 0.1 % (0-6); % Immature Granulocytes 0.7 % (0-0.5); % Lymphocytes 5.5 % (20.5-51.1); % Monocytes 4.9 % (1.7-9.3); % Neutrophils 88.5 % (42.2-75.2); Absolute Basophils 0.1 10^3/uL (0-0.2); Absolute Immature Granulocytes 0.1 10^3/uL (0-0.05); Absolute Monocytes 0.9 10^3/uL (0.1-0.6); Absolute Neutrophils 16.2 10^3/uL (1.4-6.5); Hematocrit 40.6 % (37.0-47.0); Hemoglobin 13.4 g/dL (12.0-16.0); Mean Corpuscular Hgb 30.8 pg (27.0-31.0); Mean Corpuscular Volume 93.3 fL (81.0-99.0); Mean Platelet Volume 9.8 fL (7.4-10.4); Nucleated Red Blood Cells % 0 %; Platelet Count 402 10^3/uL (130-400); Red Blood Cell Count 4.35 10^6/uL (4.20-5.40); Red Cell Dist. Width 13.3 % (11.5-14.5); White Blood Cell Count 18.3 10^3/uL (4.8-10.8)
[2023-07-11 04:34] VITALS: BMI 22.7
[2023-07-11 05:02] LABS: ALT (SGPT) 14 U/L (0-35); AST (SGOT) 34 U/L (14-36); Albumin 4.5 g/dl (3.5-5.0); Alkaline Phosphatase 123 U/L (38-126); Blood Urea Nitrogen 27 mg/dl (7-17); Calcium 10.6 mg/dl (8.4-10.2); Carbon Dioxide 33 mmol/L (22-30); Chloride 94 mmol/L (98-107); Estimated Creatinine Clearance 38 ml/min; Glucose 135 mg/dl (70-99); Lipase 91 U/L (23-300); Potassium 3.6 mmol/L (3.5-5.1); Sodium 140 mmol/L (135-145); Total Protein 7.4 g/dl (6.3-8.2); eGFR > 60.00
[2023-07-11 07:10] VITALS: BP 190/72
[2023-07-11 07:11] VITALS: BP 190/72
[2023-07-11] MEDS: CITROMA 300 ML PO (07:29)
== END 2023-07-11 07:12 | disposition home or self-care (01) ==
LOC: EMR 23:07
PROVIDERS: EMERGENCY PHYSICIAN Student in an Organized Health Care Education/Training Program; FAMILY PHYSICIAN Internal Medicine Geriatric Medicine
DX: K59.09 Other constipation (principal); R10.30 Lower abdominal pain, unspecified; I48.91 Unspecified atrial fibrillation; E03.9 Hypothyroidism, unspecified; E78.00 Pure hypercholesterolemia, unspecified; I10 Essential (primary) hypertension; Z79.01 Long term (current) use of anticoagulants; Z82.49 Family history of ischemic heart disease and other diseases of the circulatory system; Z90.49 Acquired absence of other specified parts of digestive tract; Z90.710 Acquired absence of both cervix and uterus
CPT/HCPCS: 99283; 74018; 80053; 83690; 85025

== ENCOUNTER → 2023-07-21 14:32 | Outpatient (REF) | payer MEDICARE, SELFPAY | LOC: HWRAD 14:32 | PROVIDERS: ATTENDING PHYSICIAN Specialist; FAMILY PHYSICIAN Internal Medicine Geriatric Medicine | DX: K56.41 Fecal impaction (principal) | CPT/HCPCS: 74022 ==

== ENCOUNTER → 2023-09-30 09:36 | Outpatient (REF) | payer MEDICARE, SELFPAY ==
[2023-09-30 12:01] LABS: % Basophils 0.8 % (0-2); % Eosinophils 1.3 % (0-6); % Immature Granulocytes 0.4 % (0-0.5); % Lymphocytes 14.9 % (20.5-51.1); % Monocytes 8.2 % (1.7-9.3); % Neutrophils 74.4 % (42.2-75.2); Absolute Basophils 0.1 10^3/uL (0-0.2); Absolute Eosinophils 0.1 10^3/uL (0-0.7); Absolute Immature Granulocytes 0.1 10^3/uL (0-0.05); Absolute Lymphocytes 1.7 10^3/uL (1.2-3.4); Absolute Monocytes 0.9 10^3/uL (0.1-0.6); Absolute Neutrophils 8.3 10^3/uL (1.4-6.5); Hematocrit 37.6 % (37.0-47.0); Hemoglobin 12.3 g/dL (12.0-16.0); Mean Corp Hgb Conc. 32.7 g/dL (33.0-37.0); Mean Corpuscular Hgb 30.8 pg (27.0-31.0); Mean Platelet Volume 10.5 fL (7.4-10.4); Nucleated Red Blood Cells % 0 %; Platelet Count 317 10^3/uL (130-400); Red Cell Dist. Width 14.9 % (11.5-14.5); White Blood Cell Count 11.2 10^3/uL (4.8-10.8)
[2023-09-30 12:22] LABS: Urine Albumin Trace (Neg - Trace); Urine Bilirubin Negative (Negative); Urine Character Clear (Clear); Urine Color Yellow; Urine Glucose Negative (Negative); Urine Ketone Negative (Negative); Urine Leukocyte 2+ (Negative); Urine Nitrite Negative (Negative); Urine Occult Blood Negative (Negative); Urine Specific Gravity 1.015 (<1.030); Urine Urobilinogen Negative (Neg - 1+)
[2023-09-30 12:29] LABS: ALT (SGPT) 11 U/L (0-35); AST (SGOT) 32 U/L (14-36); Albumin 4.3 g/dl (3.5-5.0); Alkaline Phosphatase 99 U/L (38-126); Blood Urea Nitrogen 25 mg/dl (7-17); Calcium 10.2 mg/dl (8.4-10.2); Carbon Dioxide 32 mmol/L (22-30); Chloride 100 mmol/L (98-107); Glucose 100 mg/dl (70-99); HDL Cholesterol 56 mg/dl; LDL Cholesterol, Calculated 85 mg/dl; Potassium 3.5 mmol/L (3.5-5.1); Sodium 137 mmol/L (135-145); Total Bilirubin 1.3 mg/dl (0.2-1.3); Total Cholesterol 209 mg/dl (50-199); Total Protein 6.9 g/dl (6.3-8.2); Triglyceride 343 mg/dl (10-149); Very Low Density Lipoprotein 68 mg/dl (0-30); eGFR > 60.00
[2023-09-30 13:38] LABS: Urine Mucus Few; Urine Squamous Cell >30 /LPF (Few)
[2023-09-30 13:40] LABS: Urine Red Blood Cell 0-2 /HPF (0-2)
[2023-09-30 13:41] LABS: Vitamin D, 25-OH*** 31.4 ng/mL (30-80)
== END ==
LOC: HWLAB 09:36
PROVIDERS: ATTENDING PHYSICIAN Internal Medicine Geriatric Medicine
DX: E78.2 Mixed hyperlipidemia (principal); J84.10 Pulmonary fibrosis, unspecified; I27.20 Pulmonary hypertension, unspecified; I48.0 Paroxysmal atrial fibrillation; E03.8 Other specified hypothyroidism; I10 Essential (primary) hypertension; K58.0 Irritable bowel syndrome with diarrhea; G47.00 Insomnia, unspecified; E55.9 Vitamin D deficiency, unspecified; I73.9 Peripheral vascular disease, unspecified; Z13.89 Encounter for screening for other disorder; B30.9 Viral conjunctivitis, unspecified
CPT/HCPCS: 36415; 80053; 80061; 81003; 81015; 82306; 85025

== ENCOUNTER → 2023-11-13 10:28 | Outpatient (REF) | payer MEDICARE, SELFPAY ==
[2023-11-13 12:25] LABS: % Basophils 0.6 % (0-2); % Eosinophils 1.2 % (0-6); % Immature Granulocytes 0.4 % (0-0.5); % Lymphocytes 16.1 % (20.5-51.1); % Monocytes 8.8 % (1.7-9.3); % Neutrophils 72.9 % (42.2-75.2); Absolute Basophils 0.1 10^3/uL (0-0.2); Absolute Eosinophils 0.1 10^3/uL (0-0.7); Absolute Immature Granulocytes 0.1 10^3/uL (0-0.05); Absolute Lymphocytes 1.9 10^3/uL (1.2-3.4); Absolute Monocytes 1.1 10^3/uL (0.1-0.6); Absolute Neutrophils 8.7 10^3/uL (1.4-6.5); Hematocrit 36.4 % (37.0-47.0); Hemoglobin 12.3 g/dL (12.0-16.0); Mean Corp Hgb Conc. 33.8 g/dL (33.0-37.0); Mean Corpuscular Volume 94.8 fL (81.0-99.0); Mean Platelet Volume 10.4 fL (7.4-10.4); Nucleated Red Blood Cells % 0 %; Platelet Count 372 10^3/uL (130-400); Red Blood Cell Count 3.84 10^6/uL (4.20-5.40); Red Cell Dist. Width 13.9 % (11.5-14.5); White Blood Cell Count 11.9 10^3/uL (4.8-10.8)
[2023-11-13 12:44] LABS: Blood Urea Nitrogen 32 mg/dl (7-17); Calcium 10.1 mg/dl (8.4-10.2); Carbon Dioxide 29 mmol/L (22-30); Chloride 98 mmol/L (98-107); Glucose 92 mg/dl (70-99); Potassium 3.5 mmol/L (3.5-5.1); Sodium 140 mmol/L (135-145); eGFR 54.53
== END ==
LOC: REG 10:28
PROVIDERS: ATTENDING PHYSICIAN Obstetrics & Gynecology Female Pelvic Medicine and Reconstructive Surgery; FAMILY PHYSICIAN Internal Medicine Geriatric Medicine
DX: Z01.810 Encounter for preprocedural cardiovascular examination (principal); R39.15 Urgency of urination
CPT/HCPCS: 36415; 80048; 85025

== ENCOUNTER 2024-01-11 01:35 | Inpatient (IN) | payer MEDICARE, SELFPAY ==
[2024-01-10 21:10] VITALS: BMI 23.8
[2024-01-10 21:11] VITALS: BP 103/87
[2024-01-10] MEDS: ZOFRAN 4 MG IV (21:18)
[2024-01-10] MEDS: NSS 1000 IV (21:19)
--- NOTE | 2024-01-10 21:23 | ED.GENMED ---
History of Present Illness
General
Chief Complaint: Abdominal Symptoms
Source: patient and ambulance crew
Time Seen by Provider: 01/10/24 21:15
History of Present Illness
History of Present Illness:
88-year-old female presents emergency department complaints of nausea vomiting nonbloody diarrhea that started approximately 2 hours prior to presentation. She denies abdominal pain, fever, chills, chest pain, dyspnea, back pain, or other
complaints. She states that her son had similar symptoms earlier today was seen in the emergency department. They both ate at a buffet and she suspects that this is related to that.
Past History
Past History
ED Past Medical History: HTN, Hypercholesterolemia, Hypothyroidism, Psychiatric and Other (History of corneal erosions, plantar fasciitis, cataracts, arthritis, pneumonia)
ED Past Surgical History: Cholecystectomy, Gynecological (Hysterectomy) and Other (Epidural and facet injections)
Social History
Tobacco: Non-smoker
Alcohol: None
Drug: None
Personal:
Living: with family
Employment: Retired
Family History
Family History: Hypertension
Phy Exam
Physical Exam
Physical Exam:
GENERAL: Alert , actively vomiting
EYE: pupils equal and reactive
NECK: Supple, no significant adenopathy.
ENT: o/p clr, mm slightly dry
CARDIAC: Regular rate and rhythm .
LUNGS: Clear breath sounds bilaterally, no acute respiratory distress, no wheezes/rales/rhonchi
ABDOMEN: Soft, without focal tenderness, no r/g, no cvat
NEUROLOGICAL: Alert and oriented, no focal neuro deficits
SKIN: Warm and dry, skin intact.
MUSCULOSKELETAL: No edema, well perfused.
PSYCH: Normal and appropriate interaction.
Course
Orders/Labs/Results
Orders:
Orders
01/10/24 21:17
Ondansetron Injectable [Zofran] 4 mg .ROUTE .[facility] ONE
01/10/24 21:18
Ondansetron Injectable [Zofran] 4 mg IV NOW STA
01/10/24 21:19
0.9% Sodium Chloride 1000 ml [Nss] 1,000 ml IV BOLUS
01/10/24 21:23
Electrocardiogram (*1) Urgent
Reason for Study: Other
Other Reason for Exam: vomiting
EKG- Treatment ONCE
01/10/24 21:24
Complete Blood Count/No Diff Urgent
Comprehensive Metabolic Panel Urgent
Lipase Urgent
01/10/24 21:25
Stool Culture Urgent
[place] Source: Feces/Stool
Specimen Description:
01/10/24 21:56
CT Abd/Pel (IV only)-DH only Urgent
Comment:
Reason For Exam: INTRACTABLE V/D
01/11/24 00:35
Potassium Chloride [KCl] 40 meq 0.9% Sodium Chloride 250 ml [Nss] 250 ml IV NOW
Abnormal Lab Results
01/10/24
21:24
WBC 23.7 H 10^3/uL
(4.8-10.8)
MCHC 32.4 L g/dL
(33.0-37.0)
Potassium 3.2 L mmol/L
(3.5-5.1)
BUN 35 H mg/dl
(7-17)
Creatinine 1.2 H mg/dL
(0.6-1.0)
Glucose 205 H mg/dl
(70-99)
Calcium 10.6 H mg/dl
(8.4-10.2)
Alkaline Phosphatase 131 H U/L
(38-126)
01/10/24 21:24
01/10/24 21:24
Vital Signs
Initial and Last Documented VS:
Initial Vital Signs
BP Pulse Ox
103/87 96
01/10/24 21:11 01/10/24 21:11
Last Documented Vital Signs
Pulse Resp BP Pulse Ox
106 25 146/70 80
01/11/24 00:00 01/11/24 00:00 01/11/24 00:00 01/11/24 00:00
*Critical Care Note
Total Time (30-74mins, 75-104mins- exclusive of procedures): Not Applicable
Update Note
Update Note:
Patient presents to the Emergency Department with __nausea vomiting diarrhea
Number and Complexity of Problems Addressed at the Encounter
� Chronic conditions affecting care:
� Acute Exacerbation and/or Progression of Chronic Illness:
� Differential Diagnosis includes: But not limited to gastroenteritis, bowel obstruction, foodborne illness, etc. etc.
Amount and/or Complexity of Data to be Reviewed and Analyzed
� I performed an independent evaluation of and my interpretation is:
EKG:read by me, sinus tachy, lvh, no acute ischemia
CT:read by vision...colitis, no bowel obstruction, small HH
Xrays:
Laboratory Studies:marked leukocytosis (23k), hypoK, dehydration
Other:
� Review of other/old records reveals:
� Clinical information was obtained by an independent historian:son at bedside
� Prescriptions/Medications Considered but not given:
� Further testing considered but not performed:
Risk of Complications and/or Morbidity or Mortality of Patient Management
� Social determinants of health affecting care:
� Discussion with other providers (PCP, Hospitalists, Consultants, etc):
� Escalation of care including admission/observation vs risk of discharge considered: 1241AM pt still having episodes of diarrhea ('brown water') here in ED, no longer retching but still c/o n. Abd is soft, nt, nd. Suspect
illness related to similar sxs son had earlier today, he is now at bedside and asx. Given labs and cointinued diarrhea, will keep overnight, hydrate, antiemetics, replace K. Awaiting stool sample (last one contaiminated by urine). D/w dr Saucedo for
admission.
ED Attending Note
-
Portions of this chart may have been created with voice recognition software.� Occasional wrong word or��sound alike� substitutions may have occurred due to the inherent limitations of voice recognition software.
Discharge Plan
Departure
Patient Disposition: Admit
Date of Disposition: 01/11/24
Time of Disposition: 00:43
Admit to: Telemetry
Admit to doctor: mark
Presentation/result/management discussed w/ accepting MD/DO: Hospitalist
Condition: Fair
Discharge Problem:
Diarrhea, Colitis, Vomiting, Acute hypokalemia
Prescriptions:
No Action
levothyroxine [Synthroid] 75 MCG tablet
75 mcg PO DAILY AT 0700
acetaminophen [Tylenol Extra Strength] 500 mg Tablet
1,000 mg PO BID
hydralazine 50 mg Tablet
100 mg PO TID
cholecalciferol (vitamin D3) [Vitamin D3] 25 mcg (1,000 unit) Tablet
25 mcg PO DAILY
metoprolol succinate 25 MG tablet extended release 24 hr
25 mg PO BID
hydrochlorothiazide 50 mg Tablet
50 mg PO DAILY
Systane Ultra (PF) 0.4-0.3 % Dropperette
1 drp BOTH EYES TID
Centrum 0.4-162-18 mg Tablet
1 tab PO DAILY
Optase 0.12-87-788 mg/g Gel
1 g topical HS
Rx Instructions:
both eyes
Xarelto 20 mg tablet
20 mg PO QPM
loperamide [Imodium] 2 mg Capsule
2 mg PO PRN PRN (Reason: Diarrhea)
Referrals:
Chip Tirado MD [Family Provider] -
Interventions
Interventions:
*Risk Screen - Suicide Last Done: 01/10/24 21:10
*General Assessment Last Done: 01/10/24 21:10
*Neglect/Abuse Screening Last Done: 01/10/24 21:10
*ED COVID-19 Vaccine History Last Done: 01/10/24 21:10
CE-Kfktop-Vylyxsadjt Assessment Last Done: 01/10/24 21:10
Discharge Date and Time
Print Language: SWAZI
[2024-01-10 21:31] LABS: Hematocrit 45.1 % (37.0-47.0); Hemoglobin 14.6 g/dL (12.0-16.0); Mean Corp Hgb Conc. 32.4 g/dL (33.0-37.0); Mean Corpuscular Hgb 30.9 pg (27.0-31.0); Mean Corpuscular Volume 95.3 fL (81.0-99.0); Mean Platelet Volume 10.4 fL (7.4-10.4); Platelet Count 358 10^3/uL (130-400); Red Blood Cell Count 4.73 10^6/uL (4.20-5.40); Red Cell Dist. Width 13.7 % (11.5-14.5); White Blood Cell Count 23.7 10^3/uL (4.8-10.8)
[2024-01-10 21:45] LABS: ALT (SGPT) 15 U/L (0-35); AST (SGOT) 33 U/L (14-36); Alkaline Phosphatase 131 U/L (38-126); Blood Urea Nitrogen 35 mg/dl (7-17); Calcium 10.6 mg/dl (8.4-10.2); Carbon Dioxide 28 mmol/L (22-30); Chloride 98 mmol/L (98-107); Estimated Creatinine Clearance 27 ml/min; Glucose 205 mg/dl (70-99); Lipase 138 U/L (23-300); Potassium 3.2 mmol/L (3.5-5.1); Sodium 143 mmol/L (135-145); Total Bilirubin 1.2 mg/dl (0.2-1.3); eGFR 43.54
[2024-01-10 23:09] VITALS: BP 159/70
[2024-01-11] VITALS: BP 146/70
[2024-01-11] MEDS: KCL 270 MEQ IV (00:52)
[2024-01-11 01:00] VITALS: BP 139/62
--- NOTE | 2024-01-11 01:24 | HPS.HSE ---
Family Physician
-
Family Physician: Chip Tirado
Chief Complaint
-
N/V/D
History of Present Illness
Patient is an 88y F with PMH significant for IBS, A-Fib and HTN who presents to ED complaining of N/V/D x > 24 hours. Patient states that she and her son ate at a buffet on . The following morning both started to have GI distress
with N/V/D. Patient states that her symptoms progressed over the past 48 hours. Today she had non-bloody emesis about 10 times. She has had many loose / watery / non-bloody stools. She complains of general fatigue, shaking chills and mild crampy
abdominal discomfort diffusely.
Patient denies any other recent illness / abx use.
Medical History
Past Medical History
Past Medical History: Reports Other
Additional Past Medical History:
Paroxysmal Atrial Fibrillation
Hypertension
Hypothyroidism
PVD
IBS
Vertigo
Uterine Prolapse
Dry Eyes
Past Surgical History: Reports Other
Additional Past Surgical History:
Left Rotator Cuff Repair
Cataracts
Bladder Lift
LOYDA / BSO
Cholecystectomy
Social History
Tobacco: Non-smoker
Alcohol: None
Drug: None
Family History
Family History: Not pertinent
Allergies / Home Medications
Allergies reflects when Allergies were last updated in [facility].
Home Medications with original date entered in [facility]
Allergy/Medication List:
Allergies
Allergy/AdvReac Type Severity Reaction Status Date / Time
amlodipine [From Norvasc] Allergy Flushing Verified 01/10/24 21:09
face,
Swelling
in legs
bacitracin Allergy Burning of Verified 01/10/24 21:09
eye
choline salicylate Allergy Unknown Verified 01/10/24 21:09
[From Trilisate]
codeine [Codeine] Allergy Patient Verified 01/10/24 21:09
denies
diflunisal Allergy Blurry Verified 01/10/24 21:09
vision,
ear ringing
diltiazem Allergy Headache, Verified 01/10/24 21:09
Nosebleed,
Constipation
ezetimibe [From Zetia] Allergy Legs ache, Verified 01/10/24 21:09
heaviness,
sore throat
hydrocodone Allergy Vomiting, Verified 01/10/24 21:09
Constipation
lovastatin [From Advicor] Allergy Itching, Verified 01/10/24 21:09
Bright Red
Rash
magnesium salicylate Allergy Unknown Verified 01/10/24 21:09
[From Trilisate]
meloxicam [From Mobic] Allergy vertigo Verified 01/10/24 21:09
methocarbamol [From Robaxin] Allergy VERTIGO Verified 01/10/24 21:09
misoprostol [From Cytotec] Allergy Bad Verified 01/10/24 21:09
stomach
pain
nabumetone [Nabumetone] Allergy Hives Verified 01/10/24 21:09
naproxen Allergy Headache Verified 01/10/24 21:09
niacin [From Advicor] Allergy Itching Verified 01/10/24 21:09
oxaprozin [From Daypro] Allergy Headache Verified 01/10/24 21:09
Quinolones Allergy Unknown Verified 01/10/24 21:09
rofecoxib [From Vioxx] Allergy Severe Verified 01/10/24 21:09
Hypertension
spironolactone Allergy high Verified 01/10/24 21:09
potassium
Trinalin Allergy Dizzy Uncoded 01/10/24 21:09
Home Medications
levothyroxine 75 mcg tablet (Synthroid) 75 mcg PO DAILY AT 0700 Thyroid 04/13/13
metoprolol succinate 25 mg tablet,extended release 24 hr 25 mg PO BID Blood Pressure 04/10/23
hydrochlorothiazide 50 mg tablet 50 mg PO DAILY 06/09/23
hcfstktt-tvf-WO 0.4 mg-calcium 162 mg-iron 18 vq-vutxfau-yjxxer tablet 1 tab PO DAILY 06/09/23
skupvmt-wtslcx-lfjgfj oil 0.12 mg-87 mg-788 mg/g topical gel 1 g topical HS 06/09/23
dextran 70-hypromellose (PF) 0.1 %-0.3 % eye drops in a dropperette (Natural Tears (PF)) 1 drp ophthalmic (eye) PRN PRN Dry Eyes 01/11/24
hydralazine 100 mg tablet 100 mg PO TID 01/11/24
ketorolac (PF) 0.45 % eye drops in a dropperette 1 drp ophthalmic (eye) HS 01/11/24
rivaroxaban 15 mg tablet (Xarelto) 15 mg PO QPM 01/11/24
Review of Systems
-
History Source: Patient
A 12 point ROS was completed and negative except as noted: Yes
Constitutional: Reports Fever, Fatigue and Chills
Respiratory: Denies Cough or Trouble Breathing
Cardiac: Denies Chest Pain or Palpitations
Abdomen/GI: Reports Abdominal Pain, Nausea, Vomiting and Diarrhea; Denies Bloody Stools or Black Stools
: Denies Dysuria or Frequency
Neurological: Denies Dizzy or Headache
Psych: Denies Depression or Anxiety
Physical Exam
Vital Signs
Vital Signs
Temp Pulse Resp BP Pulse Ox
98.7 F 99 13 139/62 99
01/11/24 01:14 01/11/24 01:00 01/11/24 01:00 01/11/24 01:00 01/11/24 01:00
Physical Exam
General: Other (88y F in no acute distress.)
HEENT: PERRLA and Other (Dry MM.)
Respiratory: Clear; No Wheezes, Rales or Rhonchi
Cardiac: S1/S2 and Tachycardia; No Murmur
GI: Soft, Non Distended, Normal Bowel Sounds and Other (Mildly, diffusely tender.)
Musculoskeletal: No Clubbing, No Cyanosis and No Edema
Neuro: AO x 3
Laboratory Results
-
01/10/24 21:24
01/10/24 21:24
Laboratory Results
Total Bilirubin 1.2 mg/dl (0.2-1.3) 01/10/24 21:24
AST 33 U/L (14-36) 01/10/24 21:24
ALT 15 U/L (0-35) 01/10/24 21:24
Alkaline Phosphatase 131 U/L (38-126) H 01/10/24 21:24
Lipase 138 U/L (23-300) 01/10/24 21:24
Impression/Plan
-
A/P: Patient is an 88y F with PMH significant for IBS, PA-Fib and hypertension who presents to ED complaining of N/V/D x 2 days.
Pancolitis
Sepsis secondary to the above
- Admit for further evaluation and treatment.
- Patient presents with leukocytosis, tachycardia and symptoms / imaging findings consistent with colitis.
- Leukocytosis - check diff for evidence of L shift.
- Check stool studies including cultures and Norovirus.
- IV abx for now with Zosyn pending stool studies / clinical improvement.
- Supportive care with antiemetics, IVFs, etc.
- Follow for clinical improvement.
Hypokalemia
Renal Insufficiency
- Potassium losses and mild increase in SCr (not meeting criteria for ALFONSO) likely due to volume losses.
- KCl replaced IV in the ED.
- Continue IVFs with LR for now.
- Follow for improvement in labs / lytes.
Hyperglycemia
- No noted history of DM, etc.
- Check A1C.
Paroxysmal Atrial Fibrillation
- Stable. Continue Toprol.
- Continue Xarelto for stroke risk reduction.
Benign Hypertension
- Stable. Continue HCTZ at 25mg daily. Continue hydralazine with holding parameters.
Hypothyroidism
- Stable. Continue current T4 supplementation.
Dry Eyes
- Continue usual home drop / ointment regimen.
DVT Prophylaxis: On Xarelto
Code Status: Full
[2024-01-11 01:31] LABS: Band Neutrophils 14 % (0-3); Lymphocytes 1 % (20-51); Monocytes 6 % (2-9); Normal RBC Morphology Yes; Platelets Checked Yes; Segmented Neutrophils 79 % (42-75); Total Cells Counted 100; Toxic Granulation 1+
[2024-01-11 02:00] VITALS: BP 124/54
[2024-01-11] MEDS: TYLENOL 650 MG PO ×2 (02:48→13:48)
[2024-01-11 03:24] VITALS: BP 148/69; BMI 22.1
[2024-01-11] MEDS: REFRESH EYE DROPS (PF) 1 DROPS OPHTH (03:25)
[2024-01-11] MEDS: ACUVAIL 1 DROPS OPHTH (03:26)
[2024-01-11] MEDS: LR 1000 IV (03:27)
[2024-01-11] MEDS: FLUSH (NSS) 2 FLUSH IV (03:30)
[2024-01-11] MEDS: ZOSYN 50 IV (03:30)
[2024-01-11 04:44] LABS: Hematocrit 40.6 % (37.0-47.0); Hemoglobin 13.3 g/dL (12.0-16.0); Mean Corp Hgb Conc. 32.8 g/dL (33.0-37.0); Mean Corpuscular Hgb 31.5 pg (27.0-31.0); Mean Corpuscular Volume 96.2 fL (81.0-99.0); Mean Platelet Volume 10.7 fL (7.4-10.4); Platelet Count 305 10^3/uL (130-400); Red Blood Cell Count 4.22 10^6/uL (4.20-5.40); White Blood Cell Count 18.7 10^3/uL (4.8-10.8)
--- NOTE | 2024-01-11 05:32 | PTCARENOTE ---
Patient's Lactic Acid 4.5. Advised DEYANIRA Villalpando. She will repeat Lactic Acid at 0900.
[2024-01-11 06:19] LABS: Blood Urea Nitrogen 34 mg/dl (7-17); Calcium 9.2 mg/dl (8.4-10.2); Carbon Dioxide 25 mmol/L (22-30); Chloride 103 mmol/L (98-107); Estimated Creatinine Clearance 31 ml/min; Glucose 157 mg/dl (70-99); Lactic Acid 4.5 mmol/L (0.7-2.0); Potassium 3.7 mmol/L (3.5-5.1); Sodium 145 mmol/L (135-145); eGFR 48.33
[2024-01-11 08:18] VITALS: BP 130/58
[2024-01-11] MEDS: ORETIC 25 MG PO (08:22)
[2024-01-11] MEDS: SYNTHROID 75 MCG PO (08:23)
[2024-01-11] MEDS: TOPROL XL 25 MG PO (08:23)
[2024-01-11] MEDS: APRESOLINE 100 MG PO (08:24)
[2024-01-11] MEDS: LR 500 IV (08:25)
[2024-01-11 09:29] LABS: Lactic Acid 2.3 mmol/L (0.7-2.0)
--- NOTE | 2024-01-11 09:56 | W.PN.HOSP.TC ---
Today's Communication/Plan
-
Discharge
Assessment / Plan
Assessment / Plan
Gen-AAOx3, NAD
HEENT-NC, AT, anicteric, clear oral mm
Neck-supple
CV-reg, no M, +S1/S2
Lungs-clear B/L
Abd-soft, NT, ND
Ext-no edema
Musculoskeletal-no cyanosis, clubbing
Skin-warm and dry
Neuro-grossly non-focal
Psych-calm, cooperative
Sepsis due to acute gastroenteritis -symptoms resolved. Tolerating diet. Suspect viral etiology. Discontinue further antibiotics. Anticipate discharge home today. Follow-up with PCP this week.
Lactic acid coming down.
Hypokalemia -improved.
Prerenal azotemia -due to volume depletion due to GI losses. Improving.
Paroxysmal atrial fibrillation
Essential hypertension
Hypothyroidism
Full code
Dispo -anticipate discharge home today. Outpatient follow-up.
35 minutes spent in discharge process.
Anticipated Discharge: Today
Subjective/Interval History
-
Date of Service: January 11, 2024
Patient seen and examined. Feeling better, tolerating diet. Denies further nausea vomiting or diarrhea.
Objective Data
-
Labs:
Laboratory Results
01/11/24
04:07
WBC 18.7 H
Hgb 13.3
Hct 40.6
Plt Count 305
Sodium 145
Potassium 3.7
Chloride 103
Carbon Dioxide 25
BUN 34 H
Creatinine 1.1 H
Glucose 157 H
Calcium 9.2
Vital Signs:
Vital Signs
Temp Pulse Resp BP Pulse Ox
98.5 F 75 16 130/58 96
01/11/24 08:18 01/11/24 08:24 01/11/24 08:18 01/11/24 08:24 01/11/24 08:18
Review of Systems
-
History Source: Patient
All other systems: Reviewed and negative
--- NOTE | 2024-01-11 10:02 | W.DS.TRANS ---
DC Summary - Transportation Assistant
-
Discharge Instructions:
Discharge Diagnosis/Procedures Sepsis, acute gastroenteritis
Diet Low Residue
Activity As tolerated
Driving Restrictions As prior to admission
Bathing Restrictions None
Instructions:
Stand-Alone Forms:
Changes to Home Medications: No
Discharge Medications:
DC Medications w/original date entered in [employer]
levothyroxine 75 mcg tablet (Synthroid) 75 mcg PO DAILY AT 0700 Thyroid 04/13/13
metoprolol succinate 25 mg tablet,extended release 24 hr 25 mg PO BID Blood Pressure 04/10/23
hydrochlorothiazide 50 mg tablet 50 mg PO DAILY 06/09/23
jyaawggh-wra-MS 0.4 mg-calcium 162 mg-iron 18 ks-lfptvxn-moigwz tablet 1 tab PO DAILY 06/09/23
ahskkkx-vjprbi-hyjjrz oil 0.12 mg-87 mg-788 mg/g topical gel 1 g topical HS 06/09/23
dextran 70-hypromellose (PF) 0.1 %-0.3 % eye drops in a dropperette (Natural Tears (PF)) 1 drp ophthalmic (eye) PRN PRN Dry Eyes 01/11/24
hydralazine 100 mg tablet 100 mg PO TID 01/11/24
ketorolac (PF) 0.45 % eye drops in a dropperette 1 drp ophthalmic (eye) HS 01/11/24
rivaroxaban 15 mg tablet (Xarelto) 15 mg PO QPM 01/11/24
Home Medication Changes
Pending Results: No
--- NOTE | 2024-01-11 10:12 | CM ---
Addendum entered by Maryana Akins RN 01/11/24 10:52:
Patient's son will provide transportation home.
Original Note:
Reviewed the chart notes and spoke with the patient at the bedside. The patient resides alone in a one story home with two steps to enter. The patient reports no DME. The patient has had [facility] and [facility] in the past. The patient reports no SNF,
but did stay at [facility] and [facility] after should surgery. The patient confirmed her pharmacy of choice iss the [facility]. CM continues to be available to patient/family and is monitoring medical plan for needs at discharge.
Plan: Discharge to home today. No needs anticipated.
[2024-01-11 10:46] LABS: Glycohemoglobin (HgbA1c) 5.4 % (4.0-5.6)
[2024-01-11] MEDS: ZOSYN IV (11:11)
[2024-01-11 11:48] VITALS: BP 146/60
[2024-01-11 13:35] LABS: Lactic Acid 2.4 mmol/L (0.7-2.0)
== END 2024-01-11 14:29 | disposition home or self-care (01) | DRG 640 ==
LOC: 2 NORTH 01:35
PROVIDERS: Nurse Practitioner Family; ADMITTING PHYSICIAN Hospitalist; ATTENDING PHYSICIAN Hospitalist; EMERGENCY PHYSICIAN Emergency Medicine; FAMILY PHYSICIAN Internal Medicine Geriatric Medicine
DX: E87.6 Hypokalemia (principal); A41.9 Sepsis, unspecified organism; E86.9 Volume depletion, unspecified; K52.9 Noninfective gastroenteritis and colitis, unspecified; E03.9 Hypothyroidism, unspecified; E78.00 Pure hypercholesterolemia, unspecified; H26.9 Unspecified cataract; I10 Essential (primary) hypertension; I48.0 Paroxysmal atrial fibrillation; I73.9 Peripheral vascular disease, unspecified; R73.9 Hyperglycemia, unspecified; K44.9 Diaphragmatic hernia without obstruction or gangrene; K76.0 Fatty (change of) liver, not elsewhere classified; M19.90 Unspecified osteoarthritis, unspecified site; M72.2 Plantar fascial fibromatosis; Z87.01 Personal history of pneumonia (recurrent); Z90.49 Acquired absence of other specified parts of digestive tract; Z79.890 Hormone replacement therapy; Z88.6 Allergy status to analgesic agent; Z88.1 Allergy status to other antibiotic agents; Z88.5 Allergy status to narcotic agent; Z88.8 Allergy status to other drugs, medicaments and biological substances
CPT/HCPCS: 74177; 80048; 80053; 83036; 83605; 83690; 85027; 93005; 96361; 96374; 96375; 99285; Q9967

== ENCOUNTER 2024-01-12 11:46 | Emergency (ER) | payer MEDICARE, SELFPAY ==
[2024-01-12 12:01] VITALS: BP 130/73
[2024-01-12 12:26] LABS: % Basophils 0.5 % (0-2); % Immature Granulocytes 0.5 % (0-0.5); % Lymphocytes 17.6 % (20.5-51.1); % Monocytes 12.5 % (1.7-9.3); % Neutrophils 66.9 % (42.2-75.2); Absolute Eosinophils 0.1 10^3/uL (0-0.7); Absolute Lymphocytes 1.1 10^3/uL (1.2-3.4); Absolute Monocytes 0.8 10^3/uL (0.1-0.6); Absolute Neutrophils 4.4 10^3/uL (1.4-6.5); Hematocrit 35.6 % (37.0-47.0); Hemoglobin 11.7 g/dL (12.0-16.0); Mean Corp Hgb Conc. 32.9 g/dL (33.0-37.0); Mean Corpuscular Hgb 30.8 pg (27.0-31.0); Mean Corpuscular Volume 93.7 fL (81.0-99.0); Mean Platelet Volume 10.2 fL (7.4-10.4); Nucleated Red Blood Cells % 0 %; Platelet Count 247 10^3/uL (130-400); White Blood Cell Count 6.5 10^3/uL (4.8-10.8)
[2024-01-12 12:41] LABS: ALT (SGPT) 18 U/L (0-35); AST (SGOT) 57 U/L (14-36); Albumin 3.9 g/dl (3.5-5.0); Alkaline Phosphatase 89 U/L (38-126); Blood Urea Nitrogen 28 mg/dl (7-17); Calcium 8.9 mg/dl (8.4-10.2); Carbon Dioxide 21 mmol/L (22-30); Chloride 106 mmol/L (98-107); Glucose 112 mg/dl (70-99); Lipase 402 U/L (23-300); Sodium 140 mmol/L (135-145); Total Bilirubin 1.1 mg/dl (0.2-1.3); Total Protein 6.5 g/dl (6.3-8.2); eGFR > 60.00
--- NOTE | 2024-01-12 12:57 | ED.GENMED ---
History of Present Illness
General
Chief Complaint: Abdominal Symptoms
Source: patient
Exam Limitations: none
Time Seen by Provider: 01/12/24 12:55
Nursing documentation reviewed up to this point in time: agreed with
History of Present Illness
History of Present Illness:
88-year-old female with history of A-fib on Xarelto, HTN, IBS, cholecystectomy, hysterectomy discharged yesterday from the hospital after admission for hypokalemia, sepsis due to acute gastroenteritis, symptoms resolved by discharge. Patient states
she went home yesterday and had several diarrheal stools, nonbloody. She took a total of 3 doses of Imodium and her last diarrheal stool last night was 2 AM then she slept through the night. She awakened at 8 AM today and between 8 and 10 AM had
several diarrheal stools. She took 1 Imodium at that time. She has had 2 small diarrheal stools since. She denies fever or chills. She she states she feels bloated with 'a little' abdominal general discomfort. She has had no vomiting, she
denies nausea. She was able to eat a banana and is drinking Gatorade.
She states that she and her son went to a [place] buffet, several hours after eating her son had similar symptoms.
When she was admitted yesterday for similar symptoms, she had leukocytosis, elevation of lactic, mild renal insufficiency.
Past History
Past History
ED Past Medical History: HTN, Hypercholesterolemia, Hypothyroidism, Psychiatric and Other (History of corneal erosions, plantar fasciitis, cataracts, arthritis, pneumonia)
ED Past Surgical History: Cholecystectomy, Gynecological (Hysterectomy) and Other (Epidural and facet injections)
Social History
Tobacco: Non-smoker
Alcohol: None
Drug: None
Personal:
Living: alone
Employment: Retired
Family History
Family History: Hypertension
Review of Systems
Review of Systems
Allergies reviewed?: Yes
All Other Systems: ROS reviewed and negative except as documented in HPI and ROS
Constitutional: Denies fever, fatigue or chills
Respiratory: Denies trouble breathing
Cardiac: Denies chest pain
ABD/GI: Reports abdominal pain (Mild bloating, mild discomfort), diarrhea and anorexia; Denies nausea, vomiting, bloody stools or black stools
: Reports no symptoms
Musculoskeletal: Reports no symptoms
Skin: Reports no symptoms
Neurological: Reports no symptoms
Phy Exam
Physical Exam
Physical Exam:
GENERAL: No acute distress. A&Ox3.
CONSTITUTIONAL: Afebrile.
EYES: Clear, conjunctivae normal
ENMT: moist mucus membranes, Pharynx nl
RESPIRATORY: Regular respirations, nonlabored, lungs clear.
CARDIOVASCULAR: Regular rate and rhythm, no murmurs, no rubs.
GI: Soft, mildly generally tender, normal BS
MUSCULOSKELETAL: Moves with ease. Well perfused.
SKIN: Warm, dry, pink
PSYCH: Normal mood and affect. Well kept, interactive and appropriate
NEUROLOGIC: Awake, alert and oriented. No focal neurological deficits
Course
Orders/Labs/Results
Orders:
Orders
01/12/24 12:17
Complete Blood Count/With Diff Urgent
Comprehensive Metabolic Panel Urgent
Lipase Urgent
01/12/24 13:21
Potassium Chloride [KCl] 40 meq PO NOW STA
Abnormal Lab Results
01/12/24
12:17
RBC 3.80 L 10^6/uL
(4.20-5.40)
Hgb 11.7 L g/dL
(12.0-16.0)
Hct 35.6 L %
(37.0-47.0)
MCHC 32.9 L g/dL
(33.0-37.0)
Absolute Lymphs (auto) 1.1 L 10^3/uL
(1.2-3.4)
Absolute Monos (auto) 0.8 H 10^3/uL
(0.1-0.6)
Lymphocytes % 17.6 L %
(20.5-51.1)
Monocytes % 12.5 H %
(1.7-9.3)
Potassium 3.0 L mmol/L
(3.5-5.1)
Carbon Dioxide 21 L mmol/L
(22-30)
BUN 28 H mg/dl
(7-17)
Glucose 112 H mg/dl
(70-99)
AST 57 H U/L
(14-36)
Lipase 402 H U/L
(23-300)
01/12/24 12:17
01/12/24 12:17
Vital Signs
Initial and Last Documented VS:
Initial Vital Signs
Temp Pulse Resp BP Pulse Ox
98.2 F 72 16 130/73 98
01/12/24 12:01 01/12/24 12:01 01/12/24 12:01 01/12/24 12:01 01/12/24 12:01
Last Documented Vital Signs
Temp Pulse Resp BP Pulse Ox
98.2 F 72 16 130/73 98
01/12/24 12:01 01/12/24 12:01 01/12/24 12:01 01/12/24 12:01 01/12/24 12:01
MDM/Problems Addressed
Differential Diagnosis Includes:
gastroenteritis.
MDM/Problems Addressed:
88-year-old female with history of A-fib on Xarelto, HTN, IBS, cholecystectomy, hysterectomy discharged yesterday from the hospital after admission for hypokalemia, sepsis due to acute gastroenteritis, symptoms resolved by discharge. Patient states
she went home yesterday and had several diarrheal stools, nonbloody. She took a total of 3 doses of Imodium and her last diarrheal stool last night was 2 AM then she slept through the night. She awakened at 8 AM today and between 8 and 10 AM had
several diarrheal stools. She took 1 Imodium at that time. She has had 2 small diarrheal stools since. She denies fever or chills. She she states she feels bloated with 'a little' abdominal general discomfort. She has had no vomiting, she
denies nausea. She was able to eat a banana and is drinking Gatorade.
Afebrile, NAD
She states that she and her son went to a [employer] buffet, several hours after eating her son had similar symptoms.
When she was admitted yesterday for similar symptoms, she had leukocytosis, elevation of lactic, mild renal insufficiency.
All of the above abnormalities in her lab work have returned to normal.
She does have a potassium of 3.0, she was given a dose of potassium here and prescription for potassium sent to her pharmacy
Her AST and lipase are mildly elevated this may be due to hemoconcentration/dehydration
Discussed the importance of increasing her fluid intake as she is mildly dehydrated.
She has a GI appointment in 2 days in a.m. then in p.m. appt. with PCP Dr. Tirado.
She is totally nontoxic appearing, we joked and laughed, she is ambulating well. No diarrhea since arrival.
She is stable for discharge
*Critical Care Note
Total Time (30-74mins, 75-104mins- exclusive of procedures): Not Applicable
ED Attending Note
-
Portions of this chart may have been created with voice recognition software.� Occasional wrong word or��sound alike� substitutions may have occurred due to the inherent limitations of voice recognition software.
Discharge Plan
Departure
Patient Disposition: Home (Routine Discharge)
Date of Disposition: 01/12/24
Time of Disposition: 13:31
Patient with high blood pressure during this ER visit?: No
Condition: Good
Discharge Problem:
Mild dehydration, Acute hypokalemia
Instructions: Diarrhea in teens and adults, Hypokalemia, Dehydration, Adult (DC)
Prescriptions:
New
potassium chloride 20 mEq tablet extended release
20 meq PO DAILY Qty: 4 0RF
No Action
levothyroxine [Synthroid] 75 MCG tablet
75 mcg PO DAILY AT 0700
metoprolol succinate 25 MG tablet extended release 24 hr
25 mg PO BID
hydrochlorothiazide 50 mg Tablet
50 mg PO DAILY
km-tyv-IC-Xi-Wg-gsoswac-lutein 0.4-162-18 mg Tablet
1 tab PO DAILY
dsouoiy-ajfqub-mxoyfo oil 0.12-87-788 mg/g Gel
1 g topical HS
Rx Instructions:
both eyes
hydralazine 100 mg Tablet
100 mg PO TID
ketorolac (PF) 0.45 % Dropperette
1 drp OPHTHALMIC (EYE) HS
Xarelto 15 mg Tablet
15 mg PO QPM
Natural Tears (PF) 0.1-0.3 % Dropperette
1 drp OPHTHALMIC (EYE) PRN PRN (Reason: Dry Eyes)
Referrals:
Chip Tirado MD [Family Provider] - Keep scheduled appt
Activity Restrictions/Additional Instructions:
As we discussed, your potassium is low. You were given a dose here today. I sent a prescription to your pharmacy for potassium to take for the next 3 days
Keep your appointment Friday with the GI doctor and Dr. Tirado as you should have your potassium rechecked.
You are mildly dehydrated. Drink at least 8 eight ounce glasses of water/fluid daily. The Gatorade is a good idea.
Continue the Imodium as directed on the label.
Return here immediately for fever, worsening abdominal pain, bloody diarrhea or feeling sicker in any way.
Interventions
Interventions:
*Risk Screen - Suicide Last Done: 01/12/24 12:01
*Neglect/Abuse Screening Last Done: 01/12/24 12:01
*Nursing Disposition Last Done: 01/12/24 13:54
MT-Ehpvjf-Cwoplnnnvn Assessment Last Done: 01/12/24 12:30
Discharge Date and Time
Discharge Date/Time: 01/12/24 13:57
Print Language: PERUVIAN
[2024-01-12] MEDS: KCL 40 MEQ PO (13:32)
== END 2024-01-12 13:57 | disposition home or self-care (01) ==
LOC: EMR 11:46
PROVIDERS: EMERGENCY PHYSICIAN Emergency Medicine; FAMILY PHYSICIAN Internal Medicine Geriatric Medicine
DX: E86.0 Dehydration (principal); E87.6 Hypokalemia; I10 Essential (primary) hypertension; I48.91 Unspecified atrial fibrillation; Z79.01 Long term (current) use of anticoagulants
CPT/HCPCS: 99283; 80053; 83690; 85025

== ENCOUNTER → 2024-01-15 12:50 | Outpatient (REF) | payer MEDICARE, SELFPAY | LOC: HWLAB 12:50 | PROVIDERS: ATTENDING PHYSICIAN Specialist; FAMILY PHYSICIAN Internal Medicine Geriatric Medicine | DX: R19.7 Diarrhea, unspecified (principal) | CPT/HCPCS: 87045; 87046; 87324; 87427; 87449 ==

== ENCOUNTER → 2024-02-10 14:41 | Outpatient (REF) | payer MEDICARE, SELFPAY ==
[2024-02-10 15:42] LABS: ALT (SGPT) 15 U/L (0-35); AST (SGOT) 33 U/L (14-36); Albumin 4.5 g/dl (3.5-5.0); Alkaline Phosphatase 91 U/L (38-126); Blood Urea Nitrogen 29 mg/dl (7-17); Calcium 9.8 mg/dl (8.4-10.2); Carbon Dioxide 29 mmol/L (22-30); Chloride 96 mmol/L (98-107); Glucose 109 mg/dl (70-99); Sodium 137 mmol/L (135-145); Total Bilirubin 1.2 mg/dl (0.2-1.3); Total Protein 7.5 g/dl (6.3-8.2); eGFR 54.19
== END ==
LOC: REG 14:41
PROVIDERS: ATTENDING PHYSICIAN Internal Medicine Geriatric Medicine
DX: E87.6 Hypokalemia (principal)
CPT/HCPCS: 36415; 80053

== ENCOUNTER → 2024-03-04 09:22 | Outpatient (REF) | payer MEDICARE, SELFPAY ==
[2024-03-04 12:32] LABS: Albumin 4.5 g/dl (3.5-5.0); Blood Urea Nitrogen 25 mg/dl (7-17); Calcium 9.9 mg/dl (8.4-10.2); Carbon Dioxide 31 mmol/L (22-30); Chloride 97 mmol/L (98-107); Glucose 96 mg/dl (70-99); Magnesium 1.7 mg/dl (1.6-2.3); Phosphorus 3.8 mg/dl (2.5-4.5); Potassium 3.7 mmol/L (3.5-5.1); Sodium 138 mmol/L (135-145); eGFR > 60.00
== END ==
LOC: HWLAB 09:22
PROVIDERS: ATTENDING PHYSICIAN Internal Medicine Geriatric Medicine
DX: E87.6 Hypokalemia (principal)
CPT/HCPCS: 36415; 80069; 83735

== ENCOUNTER → 2024-04-08 13:46 | Outpatient (REF) | payer MEDICARE, SELFPAY | LOC: HWWDC 13:46 | PROVIDERS: ATTENDING PHYSICIAN Internal Medicine Geriatric Medicine | DX: Z12.31 Encounter for screening mammogram for malignant neoplasm of breast (principal) | CPT/HCPCS: 77063; 77067 ==

== ENCOUNTER → 2024-04-21 10:22 | Outpatient (REF) | payer MEDICARE, SELFPAY | LOC: HWRAD 10:22 | PROVIDERS: ATTENDING PHYSICIAN Internal Medicine Geriatric Medicine | DX: M15.0 Primary generalized (osteo)arthritis (principal); M81.0 Age-related osteoporosis without current pathological fracture | CPT/HCPCS: 77080 ==

== ENCOUNTER → 2024-05-12 11:29 | Outpatient (REF) | payer MEDICARE, SELFPAY ==
[2024-05-12 12:20] LABS: Urine Albumin 3+ (Neg - Trace); Urine Bilirubin Negative (Negative); Urine Character Clear (Clear); Urine Color Yellow; Urine Glucose Negative (Negative); Urine Ketone Negative (Negative); Urine Leukocyte 2+ (Negative); Urine Nitrite Negative (Negative); Urine Occult Blood Negative (Negative); Urine Urobilinogen Negative (Neg - 1+)
[2024-05-12 12:26] LABS: % Basophils 0.6 % (0-2); % Eosinophils 1.5 % (0-6); % Immature Granulocytes 0.3 % (0-0.5); % Lymphocytes 17.1 % (20.5-51.1); % Monocytes 10.4 % (1.7-9.3); % Neutrophils 70.1 % (42.2-75.2); Absolute Basophils 0.1 10^3/uL (0-0.2); Absolute Eosinophils 0.2 10^3/uL (0-0.7); Absolute Lymphocytes 1.7 10^3/uL (1.2-3.4); Absolute Neutrophils 6.9 10^3/uL (1.4-6.5); Hematocrit 42.2 % (37.0-47.0); Hemoglobin 13.6 g/dL (12.0-16.0); Mean Corp Hgb Conc. 32.2 g/dL (33.0-37.0); Mean Corpuscular Hgb 30.7 pg (27.0-31.0); Mean Corpuscular Volume 95.3 fL (81.0-99.0); Mean Platelet Volume 10.2 fL (7.4-10.4); Nucleated Red Blood Cells % 0 %; Platelet Count 334 10^3/uL (130-400); Red Blood Cell Count 4.43 10^6/uL (4.20-5.40); Red Cell Dist. Width 14.1 % (11.5-14.5); White Blood Cell Count 9.8 10^3/uL (4.8-10.8)
[2024-05-12 12:47] LABS: Urine Squamous Cell >30 /LPF (Few)
[2024-05-12 12:49] LABS: Urine White Cell 26-30 /HPF (0-5)
[2024-05-12 12:50] LABS: Urine Bacteria Few (Negative)
[2024-05-12 13:09] LABS: ALT (SGPT) 15 U/L (0-35); AST (SGOT) 32 U/L (14-36); Albumin 4.6 g/dl (3.5-5.0); Alkaline Phosphatase 117 U/L (38-126); Blood Urea Nitrogen 35 mg/dl (7-17); Calcium 10.3 mg/dl (8.4-10.2); Carbon Dioxide 33 mmol/L (22-30); Chloride 98 mmol/L (98-107); Glucose 93 mg/dl (70-99); HDL Cholesterol 61 mg/dl; Magnesium 1.7 mg/dl (1.6-2.3); Potassium 3.9 mmol/L (3.5-5.1); Sodium 140 mmol/L (135-145); Total Bilirubin 1.4 mg/dl (0.2-1.3); Total Cholesterol 240 mg/dl (50-199); Total Protein 7.5 g/dl (6.3-8.2); eGFR 54.19
[2024-05-12 13:19] LABS: Free T4 1.21 ng/dl (0.78-2.19); Triglyceride > 400 mg/dl (10-149)
[2024-05-12 13:34] LABS: TSH 2.06 uIU/ml (0.47-4.68)
[2024-05-12 13:42] LABS: LDL Cholesterol, Direct 91 mg/dl
== END ==
LOC: REG 11:29
PROVIDERS: ATTENDING PHYSICIAN Internal Medicine Geriatric Medicine
DX: E78.2 Mixed hyperlipidemia (principal); I48.0 Paroxysmal atrial fibrillation; J84.10 Pulmonary fibrosis, unspecified; I27.20 Pulmonary hypertension, unspecified; E03.8 Other specified hypothyroidism; I10 Essential (primary) hypertension; K58.0 Irritable bowel syndrome with diarrhea; G47.00 Insomnia, unspecified; E55.9 Vitamin D deficiency, unspecified; I73.9 Peripheral vascular disease, unspecified; Z13.89 Encounter for screening for other disorder
CPT/HCPCS: 36415; 80053; 80061; 81003; 81015; 83721; 83735; 84439; 84443; 85025

== ENCOUNTER → 2024-06-09 14:57 | Outpatient (REF) | payer MEDICARE, SELFPAY | LOC: HWRCS 14:57 | PROVIDERS: ATTENDING PHYSICIAN Nurse Practitioner; FAMILY PHYSICIAN Internal Medicine Geriatric Medicine | DX: I48.0 Paroxysmal atrial fibrillation (principal); I10 Essential (primary) hypertension; R06.02 Shortness of breath | CPT/HCPCS: 93306 ==

== ENCOUNTER → 2024-06-11 06:53 | Outpatient (REF) | payer MEDICARE, SELFPAY ==
[2024-06-11] MEDS: LEXISCAN 0.4 MG IV (08:54)
[2024-06-11] MEDS: AMINOPHYLLINE 75 MG IV (09:01)
== END ==
LOC: RCS 06:53
PROVIDERS: ATTENDING PHYSICIAN Nurse Practitioner; FAMILY PHYSICIAN Internal Medicine Geriatric Medicine
DX: I48.0 Paroxysmal atrial fibrillation (principal); I10 Essential (primary) hypertension; R06.02 Shortness of breath
CPT/HCPCS: 78452; 93017; A9500; J2785

== ENCOUNTER → 2024-07-09 09:57 | Outpatient (REF) | payer MEDICARE, SELFPAY ==
[2024-07-09 10:53] LABS: % Basophils 0.7 % (0-2); % Eosinophils 1.8 % (0-6); % Immature Granulocytes 0.3 % (0-0.5); % Lymphocytes 15.3 % (20.5-51.1); % Monocytes 8.3 % (1.7-9.3); % Neutrophils 73.6 % (42.2-75.2); Absolute Basophils 0.1 10^3/uL (0-0.2); Absolute Eosinophils 0.2 10^3/uL (0-0.7); Absolute Lymphocytes 1.6 10^3/uL (1.2-3.4); Absolute Monocytes 0.9 10^3/uL (0.1-0.6); Absolute Neutrophils 7.6 10^3/uL (1.4-6.5); Hematocrit 39.6 % (37.0-47.0); Hemoglobin 12.7 g/dL (12.0-16.0); Mean Corp Hgb Conc. 32.1 g/dL (33.0-37.0); Mean Corpuscular Hgb 30.7 pg (27.0-31.0); Mean Corpuscular Volume 95.7 fL (81.0-99.0); Mean Platelet Volume 10.6 fL (7.4-10.4); Nucleated Red Blood Cells % 0 %; Platelet Count 305 10^3/uL (130-400); Red Blood Cell Count 4.14 10^6/uL (4.20-5.40); Red Cell Dist. Width 13.6 % (11.5-14.5); White Blood Cell Count 10.3 10^3/uL (4.8-10.8)
[2024-07-09 10:59] LABS: Urine Albumin 2+ (Neg - Trace); Urine Bilirubin Negative (Negative); Urine Character Clear (Clear); Urine Color Yellow; Urine Glucose Negative (Negative); Urine Ketone Negative (Negative); Urine Leukocyte 1+ (Negative); Urine Nitrite Negative (Negative); Urine Occult Blood Negative (Negative); Urine Specific Gravity 1.015 (<1.030); Urine Urobilinogen Negative (Neg - 1+)
[2024-07-09 11:18] LABS: Triglycerides 363 mg/dl (10-149)
[2024-07-09 11:45] LABS: Erythrocyte Sed Rate 63 mm/hour (0-20)
[2024-07-09 12:01] LABS: Urine Amorphous Seen; Urine Red Blood Cell 0-2 /HPF (0-2)
[2024-07-09 14:42] LABS: C-Reactive Protein < 5.00 mg/L (0.0-10.00)
[2024-07-12 02:18] LABS: ANA, IgG Reflex to HEp-2 None Detected (None Detected)
[2024-07-12 06:46] LABS: CCP Antibody IgG/IgA 3 Units (0-19)
== END ==
LOC: REG 09:57
PROVIDERS: ATTENDING PHYSICIAN Nurse Practitioner Adult Health; FAMILY PHYSICIAN Internal Medicine Geriatric Medicine
DX: R10.32 Left lower quadrant pain (principal); K58.0 Irritable bowel syndrome with diarrhea; Z87.19 Personal history of other diseases of the digestive system; Z00.00 Encounter for general adult medical examination without abnormal findings; E03.8 Other specified hypothyroidism; I48.0 Paroxysmal atrial fibrillation; J84.10 Pulmonary fibrosis, unspecified; I27.20 Pulmonary hypertension, unspecified; Z13.89 Encounter for screening for other disorder; G47.00 Insomnia, unspecified; E55.9 Vitamin D deficiency, unspecified; I73.9 Peripheral vascular disease, unspecified
CPT/HCPCS: 36415; 74018; 81003; 81015; 84478; 85025; 85652; 86038; 86140; 86200; 86235; 86430

== ENCOUNTER → 2024-07-22 10:13 | Outpatient (REF) | payer MEDICARE, SELFPAY | LOC: RAD 10:13 | PROVIDERS: ATTENDING PHYSICIAN Specialist; FAMILY PHYSICIAN Internal Medicine Geriatric Medicine | DX: R10.32 Left lower quadrant pain (principal) | CPT/HCPCS: 74177; Q9967 ==

== ENCOUNTER → 2024-09-21 13:39 | Outpatient (REF) | payer MEDICARE, SELFPAY | LOC: RAD 13:39 | PROVIDERS: ATTENDING PHYSICIAN Internal Medicine Geriatric Medicine | DX: E78.2 Mixed hyperlipidemia (principal); I48.0 Paroxysmal atrial fibrillation; J84.10 Pulmonary fibrosis, unspecified; I27.20 Pulmonary hypertension, unspecified; E03.8 Other specified hypothyroidism; I10 Essential (primary) hypertension; K58.0 Irritable bowel syndrome with diarrhea; G47.00 Insomnia, unspecified; E55.9 Vitamin D deficiency, unspecified; I73.9 Peripheral vascular disease, unspecified; R10.30 Lower abdominal pain, unspecified; Z13.89 Encounter for screening for other disorder | CPT/HCPCS: 93925 ==

== ENCOUNTER → 2024-12-01 09:32 | Outpatient (REF) | payer MEDICARE, SELFPAY ==
[2024-12-01 11:10] LABS: Hematocrit 38.1 % (37.0-47.0); Hemoglobin 12.5 g/dL (12.0-16.0); Mean Corp Hgb Conc. 32.8 g/dL (33.0-37.0); Mean Corpuscular Volume 96.7 fL (81.0-99.0); Nucleated Red Blood Cells % 0 %; Platelet Count 369 10^3/uL (130-400); Red Cell Dist. Width 13.5 % (11.5-14.5)
== END ==
LOC: RAD 09:32
PROVIDERS: ATTENDING PHYSICIAN Surgery Vascular Surgery; FAMILY PHYSICIAN Internal Medicine Geriatric Medicine
DX: I73.9 Peripheral vascular disease, unspecified (principal); I48.91 Unspecified atrial fibrillation
CPT/HCPCS: 36415; 85025; 93922

== ENCOUNTER 2024-12-10 10:38 | Outpatient (RCR) | payer MEDICARE, SELFPAY | END 2024-12-10 23:59 | disposition home or self-care (01) | LOC: CRHB 10:38 | PROVIDERS: ATTENDING PHYSICIAN Surgery Vascular Surgery; FAMILY PHYSICIAN Internal Medicine Geriatric Medicine | DX: I70.213 Atherosclerosis of native arteries of extremities with intermittent claudication, bilateral legs (principal) | CPT/HCPCS: 93668; 93798 ==

== ENCOUNTER 2025-01-07 10:01 | Outpatient (RCR) | payer MEDICARE, SELFPAY | END 2025-01-07 23:59 | disposition home or self-care (01) | LOC: CRHB 10:01 | PROVIDERS: ATTENDING PHYSICIAN Surgery Vascular Surgery; FAMILY PHYSICIAN Internal Medicine Geriatric Medicine | DX: I70.213 Atherosclerosis of native arteries of extremities with intermittent claudication, bilateral legs (principal) | CPT/HCPCS: 93668 ==

== ENCOUNTER 2025-01-17 09:03 | Emergency (ER) | payer MEDICARE, SELFPAY ==
[2025-01-17 09:22] VITALS: BP 154/72
--- NOTE | 2025-01-17 10:56 | ED.GENMED ---
History of Present Illness
General
Chief Complaint: Musculo-Skeletal Complaint
Time Seen by Provider: 01/17/25 10:41
History of Present Illness
History of Present Illness:
89-year-old female presents to the emergency department for evaluation of right elbow pain that began upon awakening today. Gradually improving since awakening. She notes that she sleeps with her elbows fully flexed and rested against her body.
She does take Tylenol every morning and states that since that time the pain has improved. Denies distal paresthesias. She is concerned this could be related to her peripheral artery disease of her legs thus prompting her ED evaluation. Denies
trauma to the area. No fevers or chills
Past History
Past History
ED Past Medical History: HTN, Hypercholesterolemia, Hypothyroidism, Psychiatric and Other (History of corneal erosions, plantar fasciitis, cataracts, arthritis, pneumonia)
ED Past Surgical History: Cholecystectomy, Gynecological (Hysterectomy) and Other (Epidural and facet injections)
Social History
Tobacco: Non-smoker
Alcohol: None
Drug: None
Personal:
Living: alone
Employment: Retired
Family History
Family History: Hypertension
Review of Systems
Review of Systems
Allergies reviewed?: Yes
All Other Systems: ROS reviewed and negative except as documented in HPI and ROS
Phy Exam
Physical Exam
Physical Exam:
GEN: Well appearing, NAD, WDWN
HEENT: Oral mucosa moist, no scleral icterus
Cardiac: Regular rate
Lung: No respiratory distress, no tachypnea
MSK: No gross deformity or injuries. No visible signs of injury to the right elbow. No right elbow effusion, mild tenderness elicited over the medial epicondyle. Strong right radial and right brachial pulses. No restriction to range of motion
Skin: Good color, no pallor or jaundice, no rashes
Neuro: AO x3, moves all extremities freely
Psych: Calm, cooperative
Course
Orders/Labs/Results
Orders:
Orders
12/08/25 09:25
Elbow, 3 View, Right [CR Elbow - Right Min 3 Views] Urgent
Comment:
Reason For Exam: pain
Vital Signs
Initial and Last Documented VS:
Initial Vital Signs
Temp Pulse Resp BP Pulse Ox
97.9 F 82 18 154/72 97
01/17/25 09:22 01/17/25 09:22 01/17/25 09:22 01/17/25 09:22 01/17/25 09:22
Last Documented Vital Signs
Temp Pulse Resp BP Pulse Ox
97.9 F 82 18 154/72 97
01/17/25 09:22 01/17/25 09:22 01/17/25 09:22 01/17/25 09:22 01/17/25 10:59
MDM/Problems Addressed
MDM/Problems Addressed:
No evidence on exam for arterial pathology or infectious etiology. No joint effusion. Likely musculoskeletal based on her sleeping position, advised supportive care, cannot take NSAIDs due to her history of vascular problems
*Pulse Oximetry
SaO2: 97
Oxygen Mode of Delivery: Room air
Patient hypoxic: no
*Critical Care Note
Total Time (30-74mins, 75-104mins- exclusive of procedures): Not Applicable
ED Attending Note
-
Portions of this chart may have been created with voice recognition software.� Occasional wrong word or��sound alike� substitutions may have occurred due to the inherent limitations of voice recognition software.
Discharge Plan
Departure
Patient Disposition: Home (Routine Discharge)
Date of Disposition: 01/17/25
Time of Disposition: 10:58
Patient with high blood pressure during this ER visit?: No
Discharge Problem:
Elbow pain, right
Prescriptions:
No Action
levothyroxine [Synthroid] 75 MCG tablet
75 mcg PO DAILY AT 0700
metoprolol succinate 25 MG tablet extended release 24 hr
25 mg PO BID
hydrochlorothiazide 50 mg Tablet
50 mg PO DAILY
ej-phj-HM-Md-To-wohcwym-lutein 0.4-162-18 mg Tablet
1 tab PO DAILY
amcgqnn-igrdzx-uevutu oil 0.12-87-788 mg/g Gel
1 g topical HS
Rx Instructions:
both eyes
hydralazine 100 mg Tablet
100 mg PO TID
ketorolac (PF) 0.45 % Dropperette
1 drp OPHTHALMIC (EYE) HS
Xarelto 15 mg Tablet
15 mg PO QPM
Natural Tears (PF) 0.1-0.3 % Dropperette
1 drp OPHTHALMIC (EYE) PRN PRN (Reason: Dry Eyes)
potassium chloride 20 mEq tablet extended release
20 meq PO DAILY Qty: 4 0RF
Referrals:
Chip Tirado MD [Family Provider, Internal Medicine]
Interventions
Interventions:
*Risk Screen - Suicide Last Done: 01/17/25 09:22
[facility] Fall Risk Assessment Tool Last Done: 01/17/25 11:15
*Nursing Disposition Last Done: 01/17/25 11:40
ED-Musculoskeletal Assessment Last Done: 01/17/25 10:50
Discharge Date and Time
Discharge Date/Time: 01/17/25 11:40
Print Language: BENGALI
== END 2025-01-17 11:40 | disposition home or self-care (01) ==
LOC: EMR 09:03
PROVIDERS: EMERGENCY PHYSICIAN Emergency Medicine; FAMILY PHYSICIAN Internal Medicine Geriatric Medicine
DX: M25.521 Pain in right elbow (principal); I10 Essential (primary) hypertension; E78.00 Pure hypercholesterolemia, unspecified; I73.9 Peripheral vascular disease, unspecified; E03.9 Hypothyroidism, unspecified; M19.90 Unspecified osteoarthritis, unspecified site; Z82.49 Family history of ischemic heart disease and other diseases of the circulatory system
CPT/HCPCS: 99283; 73080

== ENCOUNTER 2025-01-31 10:31 | Outpatient (RCR) | payer MEDICARE, SELFPAY | END 2025-02-02 09:15 | disposition home or self-care (01) | LOC: CRHB 10:31 | PROVIDERS: ATTENDING PHYSICIAN Surgery Vascular Surgery; FAMILY PHYSICIAN Internal Medicine Geriatric Medicine | DX: I70.213 Atherosclerosis of native arteries of extremities with intermittent claudication, bilateral legs (principal) | CPT/HCPCS: 93668 ==